=== PATIENT | male | born 1950 | race Caucasian/White ===

== ENCOUNTER 2018-08-06 11:15 | Emergency (ER) | payer MEDICARE, OTHER, SELFPAY ==
[2018-08-06] VITALS (38 sets, daily range): BP systolic 145–173; BP diastolic 61–82; PULSE 59–84; RESP 13–26; TEMP 36.5; O2SAT 94–97
[2018-08-06 11:42] LABS: Abs Immature Grans 0.01 k/cumm (0.0-0.09); Absolute Basophil Count 0.04 k/cumm (0.0-0.2); Absolute Eosinophil Count 0.25 k/cumm (0.0-0.7); Absolute Lymphocyte Count 1.53 k/cumm (1.2-3.4); Absolute Monocyte Count 0.52 k/cumm (0.11-0.7); Absolute Neutrophil Count 3.31 k/cumm (1.2-6.7); Basophils % 0.7; Eosinophils % 4.4; HGB 12.9 g/dL (13.5-17.5); Immature Grans % 0.2; Mean Corp. HGB Concentration 33.9 g/dL (32.0-36.0); Mean Corpuscular Hemoglobin 30.4 pg (27.0-33.0); Mean Corpuscular Volume 89.4 fL (80-95); Mean Platelet Volume 9.4 fL (8.0-11.0); Monocytes % 9.2; Neutrophils % 58.5; Platelet Count 250 x1000/uL (130-400); RBC 4.25 m/cumm (4.50-6.00); RBC Distribution Width 12.8 % (11.8-14.1); White Blood Cell Count 5.66 k/cumm (4.4-10.8)
[2018-08-06 12:01] LABS: ALT 19 U/L (12-78); AST 18 U/L (15-37); Albumin 3.3 g/dL (3.4-5.0); Alkaline Phosphatase 104 U/L (46-116); Anion Gap 4.7 mmol/L (3-11); BUN 27 mg/dL (7-18); Bilirubin, Total 0.4 mg/dL (0.2-1.0); CO2 33.3 mmol/L (21.0-32.0); CREATININE 1.02 mg/dL (0.70-1.30); Chloride 104 mmol/L (98-107); Glucose 106 mg/dL (70-100); Magnesium 1.9 mg/dL (1.8-2.4); NT-proBNP 229 pg/mL; Potassium 3.7 mmol/L (3.5-5.1); Sodium 142 mmol/L (136-145); Total Protein 6.9 g/dL (6.4-8.2)
[2018-08-06 12:05] LABS: Calcium 8.6 mg/dL (8.5-10.1)
--- NOTE | 2018-08-06 12:05 | ED.GENADUL_ITS ---
Discharge Plan Disposition Patient Disposition: HOME Discharge Details Chief Complaint: Dizzy/Sync Clinical Impression: Adrenal nodule, AAA (abdominal aortic aneurysm), Pre-syncope Primary Care Provider: Merrill Bales ED Provider: Jose Angel Vargas Home Meds and New Rx's Prescriptions: Continued atorvastatin 20 mg Tablet 20 mg PO DAILY RF: 0 sertraline 100 mg Tablet 100 mg PO DAILY RF: 0 trazodone 100 mg Tablet 100 mg PO DAILY RF: 0 lisinopril 10 mg Tablet 10 mg PO DAILY RF: 0 aspirin [Nicola Chewable Aspirin] 81 mg Tablet,Chewable 1 tab PO DAILY RF: 0 Discharge Instructions Instructions: Abdominal Aortic Aneurysm (GEN), Near Syncope (ED) Additional Instructions: You are found to have a left adrenal nodule on CT imaging. This will need further characterization and follow-up diagnostic testing. Be sure to discuss with your primary care physician as soon as possible. You were found to have an infrarenal abdominal aortic aneurysm measuring 3.7 x 4 x [address] imaging. Be sure to discuss this with your primary care physician and follow-up with vascular surgery as soon as possible. He will need additional diagnostic imaging and/or treatment. Please contact your primary care physician to arrange follow-up. Return to the ER for any worsening or new concerning symptoms. Referrals: Merrill Bales [Primary Care Provider] - Discharge Data Discharge Date/Time-TO BE ENTERED AT DEPARTURE: 08/06/18 15:38 Medical Decision Making 12:20 --68-year-old male, former smoker, history of hypertension, carotid stenosis, coronary artery disease listed in EMR, here with dizziness/presyncope that occurred today while having a bowel movement. Symptoms now resolved. Neurologically intact. Patient does have enlarged aorta on abdominal exam. Bedside [id number] ultrasound reveals AAA 3.8 cm diameter. Abdominal exam is nontender. Screening EKG was reviewed and interpreted by me: Sinus rhythm 60 bpm, normal axis, QTC 440, some artifact, nondiagnostic, no STEMI. Plan at this time is to check screening labs to assess for electrolyte abnormalities. Will obtain CTA of the abdomen to better dcharacterize AAA and rule out wall rupture. Patient does appear dehydrated. I will give him IV fluid bolus and reassess. Patient has had unintentional 20 pound weight loss over the past year and I worry given his smoking history that there could be malignancy not yet diagnosed. He apparently had a CT of his chest within the past year that was notable for emphysema but he does not believe there are any other abnormal findings. Weight loss may also be related to his depression. He is not suicidal and is being treated for depression. I have encouraged him to talk to his primary care physician about this. 15:00 --CT of the abdomen interpreted by radiology: IMPRESSION: 1. Infrarenal abdominal aortic aneurysm measures 3.7 x 4 x 6 cm (AP/TV/SI). 2. Atherosclerotic calcifications throughout the abdominal vasculature. No significant stenosis or occlusion. 3. Left adrenal nodule measures 1.2 x 0.8 cm, further characterization not possible on current examination. Chest x-ray interpreted by radiology: Negative. Results were reviewed with the patient. Patient understands importance of timely follow-up regarding aortic aneurysm. I will asked care management to assist in arranging outpatient follow-up with vascular surgery. Labs reviewed: Nondiagnostic, including initial troponin and second delta troponin III hours which are negative. Patient reassessed after crystalloid 500 mL bolus. He feels much better. He is remained hemodynamically stable here in the emergency department. No arrhythmias. Unclear etiology for symptoms earlier but may have been related to late administration of his medication and vagal episode during bowel movement. Disposition decision was made weighing the risks and benefits of hospitalization versus outpatient treatment, the risk for further decompensation, and the patient's wishes. The patient was stable and requested discharge. Prior to discharge, my usual and customary return precautions were reviewed with the patient - this included follow-up instructions and reason to return to the emergency department if condition worsens, does not improve as expected, or other new concerns arise. HPI General Mode of arrival: ambulatory . Date/Time Provider Initiated Documentation: 08/06/18 11:30 . Limitations to Documentation: no limitations . Information obtained by: patient . HPI Narrative: 68-year-old male with history of hypertension, hypercholesterolemia, coronary artery disease, carotid stenosis, presents with chief complaint of dizziness. Patient notes that he was feeling well this morning and then suddenly became dizzy while having a bowel move around 930. Dizziness described as presyncopal. Dizziness was worse when he stood up and improved when he lied down. Disease is now completely resolved. He had no associated headache. No numbness or focal weakness. No chest pain or abdominal pain. No shortness of breath. He has had no leg swelling or calf pain. Patient has had no bright red blood per rectum. No melena. Related Data Home Medications Medication Instructions Recorded Confirmed aspirin [Nicola Chewable Aspirin] 1 tab PO DAILY 08/06/18 08/06/18 atorvastatin 20 mg PO DAILY 08/06/18 08/06/18 lisinopril 10 mg PO DAILY 08/06/18 08/06/18 sertraline 100 mg PO DAILY 08/06/18 08/06/18 trazodone 100 mg PO DAILY 08/06/18 08/06/18 Allergies Allergy/AdvReac Type Severity Reaction Status Date / Time No Known Allergies Allergy Unverified 08/06/18 11:23 General Stated Complaint: Dizzy/Sync PARVIN: 2 Review of Systems Review of Systems All systems reviewed & are unremarkable except as noted in HPI and below Constitutional Reports fatigue, Denies fever(s) and Reports weight loss (20lbs unintentional over 1yr) Cardiovascular Denies chest pain and Denies dyspnea Respiratory Denies cough and Denies dyspnea Gastrointestinal Denies abdominal pain Psychiatric Reports depression and Denies suicidal ideation Endocrine Reports fatigue PFSH Medical History Carotid stenosis (Chronic) HTN (hypertension) (Chronic) Social History Smoking/Tobacco Use Status: Former Tobacco Use Drug use: Never Do you feel safe in your relationship?: Yes Exam Const General: cooperative and no acute distress Orientation: alert and awake HENMT Head: normocephalic and atraumatic Mouth: mucous membranes dry Throat: posterior oropharynx normal Eyes Conjunctivae: normal conjunctivae Sclera: normal sclerae EOM: EOM intact bilaterally Neck Neck: trachea midline and supple Resp Auscultation: clear to auscultation bilaterally, no rales, no rhonchi and no wheezes Cardio Jugular venous pressure: no JVD Rate: regular rate and not tachycardic Rhythm: regular rhythm GI Inspection: non-distended Palpation: soft, aortic enlargement, not firm, no guarding, no masses, not rigid and nontender Skin General skin exam: no rashes or lesions noted Neuro General: alert, awake, oriented x3 and tone normal Extrem General: no edema Psych Appearance: grossly normal Mental Status: mental status grossly normal and other (depressed) Mood: other (depressed) Attitude: cooperative Thought Process: normal Thought Content: normal Insight: insight good Judgment: judgment good Course Vital Signs Respiratory Rate 13 08/06/18 11:10 Pulse Oximetry 95 08/06/18 11:10 Temperature 36.5 C 08/06/18 11:21 Temperature Source Skin 08/06/18 11:21 Pulse 64 08/06/18 11:58 Pulse 62 08/06/18 11:40 Respiratory Rate 20 08/06/18 11:40 Respiratory Effort 08/06/18 11:40 Respiratory Depth Normal 08/06/18 11:37 Respiratory Pattern Normal 08/06/18 11:37 Blood Pressure 158/78 H 08/06/18 11:58 Blood Pressure Mean 96 08/06/18 11:31 Pulse Oximetry 96 08/06/18 11:40 Oxygen Delivery Method Room Air 08/06/18 11:21 Oxygen Flow Rate 0 08/06/18 11:21 Pain Level 0 08/06/18 11:21 Lab/Test Results Lab/Test Results: Laboratory Tests Range/Units 08/06/18 11:36 WBC (4.4-10.8) k/cumm 5.66 RBC (4.50-6.00) m/cumm 4.25 L Hgb (13.5-17.5) g/dL 12.9 L Hct (40.0-50.0) % 38.0 L MCV (80-95) fL 89.4 MCH (27.0-33.0) pg 30.4 MCHC (32.0-36.0) g/dL 33.9 RDW (11.8-14.1) % 12.8 Plt Count (130-400) x1000/uL 250 MPV (8.0-11.0) fL 9.4 Immature Gran % 0.2 Neutrophils % 58.5 Lymphocytes % 27.0 Monocytes % 9.2 Eosinophils % 4.4 Basophils % 0.7 Absolute Neutrophils (1.2-6.7) k/cumm 3.31 Absolute Lymphocytes (1.2-3.4) k/cumm 1.53 Absolute Monocytes (0.11-0.7) k/cumm 0.52 Absolute Eosinophils (0.0-0.7) k/cumm 0.25 Absolute Basophils (0.0-0.2) k/cumm 0.04
[2018-08-06 12:07] LABS: Troponin I < 0.02 ng/mL (0.00-0.06)
[2018-08-06 12:22] LABS: Bilirubin Negative (Negative); Blood Negative (Negative); Clarity Clear; Glucose Negative (Negative); Ketones Negative (Negative); Leukocyte Esterase Negative (Negative); Nitrite Negative (Negative)
[2018-08-06] MEDS: Omnipaque 350 MG/ML 100 ML BTL IJ (12:36)
[2018-08-06] MEDS: Normal Saline Flush 10 ML SYR IVP (12:37)
--- NOTE | 2018-08-06 12:39 | DI.COMBO_ITS ---
SYMPTOM/DIAGNOSIS: DIZZINESS, AAA ON POC ULTRASOUND FRONTAL AND LATERAL CHEST: No priors. Heart size and pulmonary vasculature are within normal limits. The lungs are clear. No effusions or pneumothoraces are identified. The lungs appear hyperinflated with flattened diaphragms suggesting underlying COPD. Degenerative changes are seen in the spine. IMPRESSION: No acute pulmonary process. CTA OF ABDOMEN AND PELVIS: CT angiography was performed with multi slice acquisition and multi planar and 3D reconstruction. CT angiography of the abdomen and pelvis was performed according to protocol. There is an infrarenal abdominal aortic aneurysm measuring 3.7 cm AP by 4 cm. transverse by 6.0 cm. craniocaudally. No evidence of stenosis or occlusion or dissection. The celiac axis and mesenteric arteries are unremarkable without evidence of occlusion or significant stenosis. The renal arteries show no evidence of occlusion or significant stenosis. Mild calcification is seen in the origin of the right renal artery. The iliac arteries show calcific changes. No aneurysm or occlusion or significant stenosis. The liver is normal in size. No suspicious hepatic mass is seen. The gallbladder is negative. No biliary ductal dilatation is seen. The portal, superior mesenteric and splenic veins are patent. The pancreas and spleen appear unremarkable. There is a 1.2 by 0.8 cm. hypodense left adrenal nodule. The right adrenal gland is unremarkable. The kidneys normal and symmetric enhancement. No suspicious solid renal mass or obstruction is identified. The urinary bladder is intact. The reproductive organs are unremarkable. No significant abdominal or pelvic adenopathy, ascites or pneumoperitoneum is present. The bowel shows no evidence of obstruction or inflammation. No acute abnormality is seen of the bones. IMPRESSION: 1. 3.7 by 4 by 6 cm. infrarenal abdominal aortic aneurysm. 2. Atherosclerosis of the abdominal aorta and its runoff. No significant stenosis or occlusion is identified. 3. Nonspecific left adrenal nodule. Follow up as clinically appropriate.
--- NOTE | 2018-08-06 13:11 | DI.VRAD_ITS ---
EXAM: CT Angiography Abdomen and Pelvis With Contrast EXAM DATE/TIME: 08/06/2018 11:59 AM CLINICAL HISTORY: 68 years old, male; Signs and symptoms; Other: Aaa on poc ultrasound, nonttp, dizzy TECHNIQUE: Axial computed tomographic angiography images of the abdomen and pelvis with intravenous contrast material, including non-contrast images if performed. All CT scans at this facility use at least one of these dose optimization techniques: automated exposure control; mA and/or kV adjustment per patient size (includes targeted exams where dose is matched to clinical indication); or iterative reconstruction. MIP reconstructed images were created and reviewed. CONTRAST: Contrast Material: 100 ml of Omnipaque 350; Contrast Route: IV COMPARISON: No relevant prior studies available. FINDINGS: VASCULATURE: Aorta: Infrarenal abdominal aortic aneurysm measures 3.7 x 4 x 6 cm (AP/TV/SI). Atherosclerotic calcifications throughout the abdominal vasculature. No significant stenosis or occlusion. Celiac trunk and mesenteric arteries: No occlusion or significant stenosis. Renal arteries: No occlusion or significant stenosis. Right iliac arteries: No occlusion or significant stenosis. Left iliac arteries: No occlusion or significant stenosis. ABDOMEN: Liver: No mass. Gallbladder and bile ducts: Unremarkable. No calcified stones. No ductal dilation. Pancreas: Unremarkable. No mass. No ductal dilation. Spleen: Unremarkable. No splenomegaly. Adrenals: Left adrenal nodule measures 1.2 x 0.8 cm, further characterization not possible on current examination. Right adrenal unremarkable. Kidneys and ureters: Unremarkable. No solid mass. No hydronephrosis. Stomach and bowel: Unremarkable. No obstruction. No mucosal thickening. Appendix: No evidence of appendicitis. PELVIS: Bladder: Unremarkable. No mass. Reproductive: Unremarkable as visualized. ABDOMEN and PELVIS: Intraperitoneal space: Unremarkable. No free air. No significant fluid collection. Bones/joints: No acute fracture. No dislocation. Soft tissues: Unremarkable. Lymph nodes: Unremarkable. No enlarged lymph nodes. IMPRESSION: 1. Infrarenal abdominal aortic aneurysm measures 3.7 x 4 x 6 cm (AP/TV/SI). 2. Atherosclerotic calcifications throughout the abdominal vasculature. No significant stenosis or occlusion. 3. Left adrenal nodule measures 1.2 x 0.8 cm, further characterization not possible on current examination. Dictated and Authenticated by: Liss Muniz MD. Ordering:HARPREET Walter MD
--- NOTE | 2018-08-06 13:11 | DI.VRAD_ITS ---
EXAM: XR Chest, 2 Views EXAM DATE/TIME: 08/06/2018 12:47 PM CLINICAL HISTORY: 68 years old, male; Signs and symptoms; Other: Dizzy TECHNIQUE: XR of the chest, 2 views. COMPARISON: No relevant prior studies available. FINDINGS: Lungs: Unremarkable. No consolidation. Pleural space: Unremarkable. No pleural effusion. No pneumothorax. Heart/Mediastinum: Unremarkable. No cardiomegaly. Bones/joints: Unremarkable. IMPRESSION: No acute findings. Dictated and Authenticated by: Liss Muniz MD. Ordering:HARPREET Walter MD
[2018-08-06] MEDS: Lactated Ringers 500 ML IV (13:15)
--- NOTE | 2018-08-06 14:04 | NUR.NOTE ---
patient has been resting comfortably, denies complaints, patient is aware of waiting for diagnostic results Nursing Note:
[2018-08-06 14:53] LABS: Troponin I < 0.02 ng/mL (0.00-0.06)
--- NOTE | 2018-08-26 09:26 | ZIOP_ITS ---
DATE OF DICTATION: August 26, 2018 INDICATION: Dizziness. ANALYSIS TIME: 12 days and 22 hours. Predominant underlying rhythm is sinus rhythm. When in sinus rhythm, average heart rate 70 bpm, mini mum heart rate 54 bpm and maximum heart rate 125 bpm. 27 short bursts of SVT. Run with the fastest interval lasting 7 beats with a maximum heart rate of 1 69 bpm. Longest SVT burst lasting 14 beats. Otherwise rare, isolated atrial ectopy. Rare, isolated ventricular ectopy. No nonsustained VT. No significant pauses or bradyarrhythmias. No patient-triggered events or diary entries.
== END 2018-08-06 15:38 | disposition home or self-care (01) ==
PROVIDERS: Emergency Provider Student in an Organized Health Care Education/Training Program; PCP Internal Medicine
DX: R42 Dizziness and giddiness (principal); R93.422 Abnormal radiologic findings on diagnostic imaging of left kidney; I71.4 Abdominal aortic aneurysm, without rupture; R63.4 Abnormal weight loss; I10 Essential (primary) hypertension; I25.10 Atherosclerotic heart disease of native coronary artery without angina pectoris; Z87.891 Personal history of nicotine dependence
CPT/HCPCS: 36415; 80053; 93005; 93225; 96360; 99285; 71046; 74174; 81003; 83735; 83880; 84484; 85025; 93010; J3490

== ENCOUNTER 2022-09-16 12:57 | Emergency (ER) | payer OTHER, MEDICARE, SELFPAY ==
--- NOTE | 2022-09-16 13:00 | DI.CT_ITS ---
Exam(s) CT HEAD WO EXAM: CT HEAD WO CLINICAL HISTORY: fall, head and facial injury. TECHNIQUE: Imaging Protocol: Axial computed tomography images with coronal and sagittal reformatted images were created and reviewed COMPARISON: No exams were available for comparison FINDINGS: Ventricles and Extra axial spaces: Normal in size and morphology for the patient's age. Hemorrhage: None. Cerebral parenchyma: There is no evidence of an acute territorial infarct. 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 There are areas of decreased attenuation in the white matter most consistent with sm all vessel ischemic disease. Midline shift: None. Brainstem/Cerebellum: Normal. Calvarium: There are fractures involving the anterior lateral and medial julio of the right maxillary sinus. There is a nondisplaced fracture involving the right zygomatic arch. There is a mildly disp laced fracture involving the lateral wall of the right orbit. There is a right orbital floor fractur e. There is air and hemorrhage seen in the floor and lateral aspect of the right orbit. There is ri ght infraorbital soft tissue swelling. The globe is intact. The extraocular muscles appear symmetri c and unremarkable. Visualized Paranasal sinuses/Mastoids: There is hemorrhage seen in the right maxillary sinus, the rig ht ethmoid air cells and the right nasal passageway. There is also hemorrhage seen in the posterior oropharynx and nasopharynx. Soft Tissues: Unremarkable. IMPRESSION: 1. No acute intracranial process. 2. Fractures involving the right orbital floor and lateral wall. No evidence of muscle entrapment. Fluid and air is seen in the right retro-orbital space. 3. Fractures involving the right zygomatic arch, anterior, posterior and medial julio of the right ma xillary sinus. 4. Hemorrhage seen in the right maxillary sinus, the nasopharynx and oropharynx. 5. Findings were discussed with Dr. Yarbrough at 2:44 p.m. on 09/16/2022. RADIATION DOSE DELIVERED: 859.18mGy.cm Total DLP DATA REPOSITORY: All CT scans at this facility are submitted to the National Radiology Data Registry (NRDR) Dose Index Registry (DIR) with the [employer] (A[employer]). RADIATION OPTIMIZATION: All CT scans at this facility use at least one of these dose optimization te chniques: automated exposure control; mA and/or kV adjustment per patient size (includes targeted exa ms where dose is matched to clinical indication); or iterative reconstruction.
[2022-09-16 13:03] VITALS: BP 156/78; PULSE 79; RESP 16; TEMP 36.6; O2SAT 95
--- NOTE | 2022-09-16 13:14 | ED.GENADUL_ITS ---
Discharge Plan Disposition Patient Disposition: Home Condition: Stable Discharge Details Clinical Impression: Orbital floor fracture, Maxillary fracture, Zygomatic fracture Primary Care Provider: Merrill Bales ED Provider: Karsten Yarbrough Home Meds and New Rx's Prescriptions: New amoxicillin-pot clavulanate 875-125 mg tablet 1 tab PO BID 5 Days Qty: 10 0RF No Action atorvastatin 20 mg Tablet 20 mg PO DAILY sertraline 100 mg Tablet 100 mg PO DAILY trazodone 100 mg Tablet 100 mg PO DAILY lisinopril 10 mg Tablet 10 mg PO DAILY aspirin [Nicola Chewable Aspirin] 81 mg Tablet,Chewable 1 tab PO DAILY Discharge Instructions Instructions: Facial Fracture (ED) Additional Instructions: Please follow-up closely with ENT and ophthalmology at [facility]. If you have any issues obtaining an appointment or have any worsening symptoms please return to the emergency department. Medical Decision Making 72-year-old male with daily estrogen use presents after mechanical slip and fall while walking in the [place] falling onto his face, no loss of consciousness, epistaxis developing bilateral naris predominantly now in the right naris, no malocclusion no intraoral lesions, patient is alert oriented ambulatory moving all extremities hemodynamically stable. Nasal clamp applied, will attempt to provide hemostasis with the injured days Afrin and tranexamic acid. Given age and mechanism will obtain CT head to assess for intracranial process. Likely nasal fracture. 15: 19 patient resting comfortably nose hemostatic. Evidence of orbital floor flexure maxillary sinus fracture and zygomatic fracture. No evidence of enophthalmos or proptosis, patient has normal extraocular motion and no visual changes. Patient follows at the [facility] [place] I have called the and spoke with the scheduling department for [facility] they will be reaching out to schedule him within the next couple of days for close follow-up. I am starting patient on Augmentin HPI General Date/Time Provider Initiated Documentation: 09/16/22 13:10 . HPI Narrative: 72-year-old male presents today after mechanical fall while walking in the [place] fell forward hitting his face on a long COVID no loss of consciousness. Bleeding from nostrils. Related Data Home Medications Medication Instructions Recorded Confirmed aspirin 81 mg chewable tablet 1 tab PO DAILY 08/06/18 09/16/22 (Nicola Chewable Low Dose Aspirin) atorvastatin 20 mg tablet 20 mg PO DAILY 08/06/18 09/16/22 lisinopril 10 mg tablet 10 mg PO DAILY 08/06/18 09/16/22 sertraline 100 mg tablet 100 mg PO DAILY 08/06/18 09/16/22 trazodone 100 mg tablet 100 mg PO DAILY 08/06/18 09/16/22 amoxicillin 875 mg-potassium 1 tab PO BID 5 days #10 tabs 09/16/22 clavulanate 125 mg tablet Previous Rx's Medication Instructions Recorded amoxicillin 875 mg-potassium 1 tab PO BID 5 days #10 tabs 09/16/22 clavulanate 125 mg tablet Allergies Allergy/AdvReac Type Severity Reaction Status Date / Time No Known Allergies Allergy Unverified 08/06/18 11:23 General Stated Complaint: Epistaxis PARVIN: 3 Review of Systems Narrative: Review of Systems Constitutional: negative Eyes: negative ENT: Epistaxis Cardiovascular: negative Respiratory: negative Gastrointestinal: negative : negative Musculoskeletal: negative Skin: negative Neurologic: negative Psych: negative PFSH All Active Problems (Updated 09/16/22 @ 15:21 by Karsten Yarbrough MD) Orbital floor fracture (Acute) Maxillary fracture (Acute) Zygomatic fracture (Acute) Medical History (Updated 09/16/22 @ 15:21 by Karsten Yarbrough MD) Carotid stenosis HTN (hypertension) Social History Smoking/Tobacco Use Status: Former Tobacco Use Quit Date: 01/29/18 Smoking risk assessment performed?: Yes Drug use: Never Do you feel safe in your relationship?: Yes Exam Narrative Exam Narrative: Physical Examination General: alert, awake, cooperative, resting comfortably, no acute distress HEENT: normocephalic, epistaxis at this point right naris, no noticeable facial lacerations or intraoral lesions, no malocclusion; PERRL, EOM intact, conjunctiva normal; no nasal discharge; moist mucous membranes, oral and pharyngeal mucosa normal, tolerating secretions Neck: supple, trachea midline; full ROM Chest: normal to inspection Respiratory: normal respiratory effort, speaking in full sentences, clear to auscultation, no wheezing, rales or rhonchi Cardiac: regular rate, regular rhythm, S1S2 intact, no murmurs rubs or gallops GI: abdomen soft, non-tender, non-distended; no palpable mass or hepatosplenomegaly Neuro: AAOx3, normal speech, moving all extremities, ambulatory Extremities: Moving all extremities Psych: Appropriate mood and affect Course Vital Signs Vital signs: Vital Signs Temperature 36.6 C 09/16/22 13:03 Pulse 79 09/16/22 13:03 Respiratory Rate 16 09/16/22 13:03 Blood Pressure 156/78 H 09/16/22 13:03 Pulse Oximetry 95 09/16/22 13:03 Temperature 36.6 C 09/16/22 13:03 Pulse 79 09/16/22 13:03 Respiratory Rate 16 09/16/22 13:03 Blood Pressure 156/78 H 09/16/22 13:03 Pulse Oximetry 95 09/16/22 13:03 Oxygen Delivery Method Room Air 09/16/22 13:03 Oxygen Flow Rate 0 09/16/22 13:03 Pain Level 5 09/16/22 13:03
[2022-09-16] MEDS: Oxymetazolone 0.05% SPRAY 15 ML BTL NS (13:17)
[2022-09-16] MEDS: Tranexamic Acid 1,000 MG/10 ML VIAL 500 MG NS (13:18)
[2022-09-16] MEDS: Ondansetron O.D.T. 4 MG TABEF SL (13:43)
[2022-09-16] MEDS: Amoxicillin 875/Clav. 125 TAB PO (15:40)
== END 2022-09-16 15:45 | disposition home or self-care (01) ==
PROVIDERS: Emergency Provider Emergency Medicine; PCP Internal Medicine
DX: S02.31XA Fracture of orbital floor, right side, initial encounter for closed fracture (principal); S02.40CA Maxillary fracture, right side, initial encounter for closed fracture; S02.40EA Zygomatic fracture, right side, initial encounter for closed fracture; I10 Essential (primary) hypertension; Z79.82 Long term (current) use of aspirin; W01.198A Fall on same level from slipping, tripping and stumbling with subsequent striking against other object, initial encounter; Y93.01 Activity, walking, marching and hiking; Y99.8 Other external cause status
CPT/HCPCS: 99284; 70450

== ENCOUNTER 2023-04-25 09:03 | Observation (INO) | payer OTHER, SELFPAY ==
[2023-04-25] VITALS (38 sets, daily range): BP systolic 100–134; BP diastolic 41–73; PULSE 72–98; RESP 9–41; TEMP 36.2–37.8; O2SAT 84–95
--- NOTE | 2023-04-25 09:00 | RT.EKG_ITS ---
APPROVED REPORT Exam: Resting ECG Reason for Exam: SOB Patient Location: E HR:93 bpm ECG Measurements Heart Rate 93 AXIS AR 129 P 54 QRSd 96 QRS 86 QT 365 T 128 QTc 453 Conclusion Sinus rhythm...normal P axis, V-rate 60- 99 Atrial premature complex...SV complex w/ short R-R interval Nonspecific repol abnormality, diffuse leads...ST dep, T flat/neg, ant/lat/inf Narrow complex normal sinus rhythm at a rate of 93. Normal axis. Intervals within normal limits. M ild ST segment flattening inferiorly. No ST segment elevations. T wave inversion in aVL. No acute injury pattern. No prior for comparison.
--- NOTE | 2023-04-25 09:15 | DI.RAD_ITS ---
Exam(s) XR CHEST 2V PA LATERAL EXAM: XR CHEST 2V PA LATERAL CLINICAL HISTORY: Shortness of breath fever cough TECHNIQUE: 2D digital imaging was performed of the chest. Two images were obtained. PA and lateral views were obtained. COMPARISON: CR XR CHEST 2V PA LATERAL from 08/06/2018 FINDINGS: MEDIASTINUM: Normal. HEART: Normal. PULMONARY VASCULATURE: Normal. LUNGS: The lungs appear hyperinflated with flattened diaphragms suggesting underlying COPD. No focal consolidating infiltrate. PLEURAL SPACE: No pleural effusion or pneumothorax. BONE:Within normal limits for the patient's age. OTHER FINDINGS:Normal. IMPRESSION: 1. No focal consolidations. 2. COPD. DATA REPOSITORY: RADIATION DOSE DELIVERED:
--- NOTE | 2023-04-25 09:18 | W.ED.GENAD ---
Discharge Plan Disposition Patient Disposition: [facility] Discharge Details Clinical Impression: BERNARDA (acute kidney injury), Community acquired pneumonia Primary Care Provider: Merrill Bales ED Provider: Manny Wallace Home Meds and New Rx's Prescriptions: No Action atorvastatin 20 mg Tablet 20 mg PO DAILY sertraline 100 mg Tablet 100 mg PO DAILY trazodone 100 mg Tablet 100 mg PO DAILY lisinopril 10 mg Tablet 10 mg PO DAILY aspirin [Nicola Chewable Aspirin] 81 mg Tablet,Chewable 1 tab PO DAILY HPI General Date/Time Provider Initiated Documentation: 04/25/23 09:17. HPI Narrative: MDM This is a chronically ill-appearing afebrile and not tachycardic 72-year-old male with productive cough shortness of breath abnormal lung sounds concerning for the possibility of community-acquired pneumonia for which patient will receive oral antibiotics given that he is tolerating p.o. Patient was hypoxic after ambulating in the emergency department and as result feel he will require hospitalization. His heart rate is just above 90 however he is not septic appearing so I did not order blood cultures nor a lactate. We will reach out to the [place] for hospitalization request. Following ambulatory trial in the emergency department patient desaturated into the mid 80s. When I saw him he was on 1 L of oxygen. In the absence of trauma and given bilateral breath sounds my suspicion for pneumothorax is low. I turned off his oxygen and addressed his oxygen saturation was 89% on room air. He did become markedly dyspneic after sitting up. No chest pain to suggest ACS. No hypotension to suggest PE. No nausea nor vomiting no history of ethanol abuse to suggest anaerobic infection as result of aspiration. No pain or proportion to suggest necrotizing soft tissue infection. No history of CHF and no lower extremity swelling so my suspicion for acute CHF is low. No significant wheezes nor active tobacco use nor history of COPD to suggest acute COPD exacerbation. Not a diabetic so doubt opportunistic infection. No significant murmur to suggest valvular pathology. 10 AM The CBC showing no leukocytosis. Mild normocytic anemia similar to prior. No leukocytosis. Patient maintaining oxygen saturation 89% on room air. 10:13 AM [facility] the patient would have to [facility] if he wanted to be transferred. Patient would not be willing to pay for transfer. As result will pursue local hospitalization. 10:35 AM Panel showing mild hyperglycemia but no anion gap. Normal bicarbonate??not consistent with DKA. Mild BERNARDA. Patient received 500 cc of crystalloid. Preliminary virtual radiology read concerning for hyper expanded lung steen consistent with COPD. No focal consolidations. Given concern for COPD on x-ray we will add on prednisone. 10:54 AM I spoke with Dr. Renteria who agreed graciously to accept the patient for hospitalization. He requested adding on procalcitonin and a sputum culture. Chronic conditions affecting the care of the patient: Coronary artery disease History obtained from an outside historian: Patient's External record review: [facility] EMR Diagnostic interpretations performed by me: Per my independent interpretation chest x-ray shows: Increased left-sided lung markings Per my independent interpretation EKG shows: Narrow complex normal sinus rhythm at a rate of 93. Normal axis. Intervals within normal limits. Mild ST segment flattening inferiorly. No ST segment elevations. T wave inversion in aVL. No acute injury pattern. No prior for comparison. Medications: Amoxicillin clavulanic acid & doxycycline Social determinants of health affecting disposition: N/A Management discussed with: Dr. Renteria Treatment/interventions considered: N/A Response to therapies provided: N/A HPI This is a 72-year-old male arrived to the emergency department via private vehicle in the setting of shortness of breath and productive cough for the past 1 week. Patient said that he had a fever up until 3 days ago but this improved. He is a former tobacco user and quit 6 years ago. He has not a drinker and he denies illicit drug use. He denies any history of CHF. His reports that he does have coronary arterial calcifications that has never been stented. He has no history of diabetes. He denies chest pain nausea vomiting and abdominal pain. No recent falls. Exam General: Well-appearing in no acute distress speaking in complete sentences. Head: Normocephalic, atraumatic. Eye: Extraocular eye movements intact. No conjunctival injection. No scleral icterus. Ear, nose, mouth, throat: Grossly normal inspection. Normal voice, handling secretions normally. Neck: Trachea midline. Cardiovascular: Well-perfused distal extremities. Regular rate and rhythm. No murmurs. Respiratory: Nonlabored respiration. Coarse left-sided breath sounds. No wheezes. Mild tachypnea with respiratory rate of 30. Gastrointestinal: Nondistended abdomen. Musculoskeletal: No significant lower extremity pitting edema. Moving all 4 extremities spontaneously. Skin: Normal for age and race, grossly normal temperature and turgor. No acute rash. Neurologic: Alert and appropriate, no apparent acute deficits. Psychiatric: Mood and manner are appropriate. Grooming and personal hygiene are appropriate. Related Data Home Medications Medication Instructions Recorded Confirmed aspirin 81 mg chewable tablet 1 tab PO DAILY 08/06/18 04/25/23 (Nicola Chewable Low Dose Aspirin) atorvastatin 20 mg tablet 20 mg PO DAILY 08/06/18 04/25/23 lisinopril 10 mg tablet 10 mg PO DAILY 08/06/18 04/25/23 sertraline 100 mg tablet 100 mg PO DAILY 08/06/18 04/25/23 trazodone 100 mg tablet 100 mg PO DAILY 08/06/18 04/25/23 Allergies Allergy/AdvReac Type Severity Reaction Status Date / Time No Known Allergies Allergy Unverified 04/25/23 09:21 General Stated Complaint: SOB PARVIN: 2 PFSH All Active Problems (Updated 04/25/23 @ 10:38 by Manny Wallace MD) Community acquired pneumonia (Acute) BERNARDA (acute kidney injury) (Acute) Medical History (Updated 04/25/23 @ 10:38 by Manny Wallace MD) HTN (hypertension) Carotid stenosis Social History Smoking/Tobacco Use Status: Former Tobacco Use Quit Date: 01/29/18 Smoking risk assessment performed?: Yes Alcohol Intake: former Drug use: Never Do you feel safe at home: Yes Do you feel safe in your relationship?: Yes Course Vital Signs Vital signs: Vital Signs Pulse 94 H 04/25/23 09:06 Respiratory Rate 36 H 04/25/23 09:06 Blood Pressure 134/59 L 04/25/23 09:06 Pulse Oximetry 85 L 04/25/23 09:06 Temperature Source Skin 04/25/23 09:06 Pulse 91 H 04/25/23 09:16 Pulse 95 H 04/25/23 09:16 Respiratory Rate 36 H 04/25/23 09:16 Respiratory Effort Short of Breath, Accessory Muscle Use, Incrsd Work of Breathing 04/25/23 09:13 Respiratory Pattern Tachypnea 04/25/23 09:13 Blood Pressure 115/45 L 04/25/23 09:16 Blood Pressure Mean 68 04/25/23 09:16 Pulse Oximetry 95 04/25/23 09:16 Oxygen Delivery Method Room Air 04/25/23 09:06 Oxygen Flow Rate 0 04/25/23 09:06 Pain Level 0 04/25/23 09:06
[2023-04-25 09:40] LABS: Abs Immature Grans 0.04 10^3/uL (0.0-0.06); Absolute Eosinophil Count 0.05 10^3/uL (0.0-0.7); Absolute Lymphocyte Count 0.67 10^3/uL (1.2-3.4); Absolute Monocyte Count 1.53 10^3/uL (0.1-0.8); Absolute Neutrophil Count 8.99 10^3/uL (1.2-6.7); Basophils % 0.4; Eosinophils % 0.4; HGB 12.4 g/dL (13.5-17.5); Immature Grans % 0.4; Lymphocytes % 5.9; MCHC 32.6 % (32.0-36.0); MCV 89 fL (80-95); MPV 8.9 fL (8.0-11.0); Monocytes % 13.5; Neutrophils % 79.4; Platelet Count 223 10^3/uL (130-400); RBC 4.27 10^6/uL (4.36-5.78); RDW 12.6 % (11.8-14.1); RDW-SD 40.8 fL; WBC 11.32 10^3/uL (4.4-10.8)
[2023-04-25] MEDS: Amoxicillin 875/Clav. 125 TAB PO (09:43)
[2023-04-25] MEDS: Doxycycline Hyclate 100 MG CAP PO (09:43)
[2023-04-25 09:45] LABS: Absolute Basophil Count 0.05 10^3/uL (0.0-0.2)
[2023-04-25 09:51] LABS: Anion Gap 3.6 mmol/L (3-11); BUN 23 mg/dL (7-18); CO2 30.4 mmol/L (21.0-32.0); CREATININE 1.3 mg/dL (0.70-1.30); Calcium 8.6 mg/dL (8.5-10.1); Chloride 102 mmol/L (98-107); Estimated GFR 58.01 (mL/min/1.73m2); Glucose 157 mg/dL (74-106); Potassium 3.9 mmol/L (3.5-5.1); Sodium 136 mmol/L (136-145)
[2023-04-25 09:56] LABS: Diff Comment Agrees w/ Instrument; RBC Morphology Normal
--- NOTE | 2023-04-25 10:34 | DI.VRAD_ITS ---
PROCEDURE INFORMATION: Exam: XR Chest Exam date and time: 04/25/2023 10:18 AM Age: 72 years old Clinical indication: Cough and fever and shortness of breath TECHNIQUE: Imaging protocol: Radiologic exam of the chest. Views: 2 views. COMPARISON: CR XR CHEST 2V PA LATERAL 08/06/2018 12:16 PM FINDINGS: Lungs: Hyperexpanded lung steen consistent with COPD . No focal consolidation. Pleural spaces: Unremarkable. No pleural effusion. No pneumothorax. Heart/Mediastinum: Unremarkable. No cardiomegaly. Bones/joints: Unremarkable. IMPRESSION: Hyperexpanded lung steen consistent with COPD . No focal consolidation Dictated and Authenticated by: Ventura Serna MD. Ordering:TACHO Bryant MD
[2023-04-25] MEDS: Normal Saline 500 ML IV (10:51)
[2023-04-25] MEDS: predniSONE 20 MG TAB 60 MG PO (10:52)
[2023-04-25 11:46] LABS: COVID-19 PCR Negative (Negative); Influenza A PCR Negative (Negative); Influenza B PCR Negative (Negative); RSV PCR Negative (Negative)
[2023-04-25 11:55] LABS: Source Nasopharynx
[2023-04-25 11:58] LABS: Procalcitonin 0.1 ng/mL
--- NOTE | 2023-04-25 12:52 | W.PM.HP.N ---
Date of service: 04/25/23 Time of Service: 12:52 Assessment and Plan Assessment and plan (1) COPD exacerbation: Status: Acute Assessment and plan: clinically stable, probably could have been dc home earlier from the ED but apparently still had oxygen needs. I will check exercise oximetry tomorrow but I expect him to go home on oral antibiotics and steroid taper. Professional time spent interviewing and examining patient, discussion of goals of care with hospital team (care management, nursing and consulting professionals) was 45 minutes History of Present Illness History of Present Illness Chief Complaint: Dyspnea Narrative: 72-year-old male with history of COPD, essential pretension, hyperlipidemia, previous CVA, left internal carotid artery stenosis who presents to the emergency department with increasing dyspnea and cough along with intermittent fevers and chills. Symptoms began 5 days ago initially with URI symptoms of nasal congestion and postnasal drainage and then went into a moist cough and progressed over the course of the week with some low-grade fever and chills. Did not take his temperature just felt feverish. He says the fever broke 2 days ago but came into the emergency department today because of the unrelenting cough and shortness of breath. He says he has had progressive increase of his dyspnea with activity for the last year. He formerly used to be able to go deer hunting and climb the hills but now he gets too breathless to even do routine work around the home. Denies any exertional chest pain or pressure. Work-up in the emergency department included a chest x-ray and routine labs including CBC BMP and fluid nasal swab. FLUVID was negative for SARS-CoV-2 as well as influenza and RSV. CBC showed a mild leukocytosis with a white count of 11,300 with a leftward shift. He has a stable chronic anemia with hemoglobin of 12 g. No thrombocytosis BMP showed a mildly elevated BUN of 23 creatinine was slightly elevated 1.3. Glucose was elevated at 157. Chest imaging included chest 2 Views which showed no focal consolidations but showed COPD. ER physician asked that I admit the patient as he was unable to discharge the patient from the emergency department due to exertional dyspnea and hypoxemia. Reportedly every time they try to get him up and ambulate him his oxygen saturation dropped to 85%. He was treated the emergency department with Augmentin and doxycycline and 60 mg of prednisone he was also given a fluid bolus of 500 mL of normal saline. I was told that he was given a nebulizer but I see no evidence that any aerosolized bronchodilator was given in the emergency department. After arrival to the floor he appeared to be quite calm and comfortable and was not short of breath. Over the course of the day he has been weaned off of oxygen. He came up to the floor on 1 L/min nasal cannula and is now currently on room air with an oxygen saturation of 92%. Review of Systems All systems reviewed & are unremarkable except as noted in HPI and below Constitutional Constitutional: Reports as per HPI Cardiovascular Cardiovascular: Reports as per HPI, Denies chest pain, Denies leg edema, Denies palpitations, Reports dyspnea and Reports dyspnea on exertion Respiratory Respiratory: Reports as per HPI, Reports chest congestion, Reports cough, Denies hemoptysis, Reports excessive phlegm production, Reports dyspnea and Reports dyspnea on exertion Gastrointestinal Gastrointestinal: Reports as per HPI Genitourinary Genitourinary: Reports system reviewed and no additional complaints, except as documented Musculoskeletal Musculoskeletal: Reports system reviewed and no additional complaints, except as documented Integumentary/Breasts Skin/Breast: Reports system reviewed and no additional complaints, except as documented Neurologic Neurologic: Reports system reviewed and no additional complaints, except as documented Endocrine Endocrine: Reports system reviewed and no additional complaints, except as documented and Denies palpitations Hematologic/Lymphatic Hematologic/Lymphatic: Reports system reviewed and no additional complaints, except as documented Allergic/Immunologic Allergic/Immunologic: Reports system reviewed and no additional complaints, except as documented PFSH All Active Problems (Updated 04/25/23 @ 18:32 by Douglas Celis MD) COPD exacerbation (Acute) Abdominal aortic aneurysm (Acute) Community acquired pneumonia (Acute) BERNARDA (acute kidney injury) (Acute) Medical History (Updated 04/25/23 @ 18:32 by Douglas Celis MD) Deafness Compensated by hearing aids Transient ischemic attack Coronary artery disease HTN (hypertension) Carotid stenosis Surgical History (Updated 04/25/23 @ 17:48 by Douglas Celis MD) Pilonidal cyst Social History (Updated 04/25/23 @ 17:47 by Douglas Celis MD) Smoking/Tobacco Use Status: Former Tobacco Use Quit Date: 01/29/18 Tobacco: How many years used: 53 Smoking risk assessment performed?: Yes Alcohol Intake: former Drug use: Never Housing: house Do you feel safe at home: Yes Do you feel safe in your relationship?: Yes Meds Allergies and Home Medications Allergies Allergy/AdvReac Type Severity Reaction Status Date / Time No Known Allergies Allergy Unverified 04/25/23 09:21 Home Medications Medication Instructions Recorded Confirmed Type aspirin 81 mg chewable tablet 1 tab PO DAILY 08/06/18 04/25/23 History (Nicola Chewable Low Dose Aspirin) atorvastatin 20 mg tablet 20 mg PO DAILY 08/06/18 04/25/23 History lisinopril 10 mg tablet 10 mg PO DAILY 08/06/18 04/25/23 History sertraline 100 mg tablet 100 mg PO DAILY 08/06/18 04/25/23 History trazodone 100 mg tablet 100 mg PO DAILY 08/06/18 04/25/23 History Exam Narrative Exam Narrative: Alert and oriented x4 HEENT: Atraumatic normocephalic, pupils equally round reactive to light and accommodation, extraocular motion intact, TMs intact, nares moist and patent without exudate or bleeding, oropharynx noninjected without exudate Neck: Supple, nontender, without thyromegaly or lymphadenopathy or JVD. Bilateral carotid bruits with normal impulse Lungs: barrel chested, diffusely diminished breath sounds w/ end expiratory wheezing Heart: Regular rate and rhythm without murmur rub or gallop. Normal apical impulse Abdomen: Nondistended, normal bowel sounds, nontender to palpation or percussion, no organomegaly, no bruits, no palpable masses Extremities: Normal range of motion with normal strength. No peripheral cyanosis or edema. Normal pulses Neurologic: Cranial nerves II through XII grossly within normal limits. Normal strength and sensation over the face trunk and extremities. Results Imaging Chest x-ray: report reviewed and image reviewed Labs 04/25/23 09:30 04/25/23 09:30 Labs: Laboratory Results - last 24 hr 04/25/23 04/25/23 09:30 10:40 WBC 11.32 H RBC 4.27 L Hgb 12.4 L Hct 38.0 L MCV 89 MCH 29.0 MCHC 32.6 RDW 12.6 Plt Count 223 MPV 8.9 Immature Gran % 0.4 Neutrophils % 79.4 Lymphocytes % 5.9 Monocytes % 13.5 Eosinophils % 0.4 Basophils % 0.4 Nucleated RBC % 0.0 Absolute Neutrophils 8.99 H Absolute Lymphocytes 0.67 L Absolute Monocytes 1.53 H Absolute Eosinophils 0.05 Absolute Basophils 0.05 RBC Morphology Normal Sodium 136 Potassium 3.9 Chloride 102 Carbon Dioxide 30.4 Anion Gap 3.6 BUN 23 H Creatinine 1.3 Est GFR (CKD-EPI 2020) 58.01 Glucose 157 H Calcium 8.6 Procalcitonin 0.1 COVID-19 Source Nasopharynx SARS-CoV-2 (PCR) Negative Influenza Type A (PCR) Negative Influenza Type B (PCR) Negative RSV (PCR) Negative Last Vital Signs Temp 36.2 C L 04/25/23 10:57 Pulse 95 H 04/25/23 12:20 Resp 22 04/25/23 12:20 BP 112/47 L 04/25/23 12:20 Pulse Ox 88 L 04/25/23 12:20 Time Spent Time spent with Patient: 40-54 minutes Time was spent: preparing to see the patient(eg.review tests), obtaining and/or reviewing separately otained hiistory, ordering medications,tests, procedures, referring, communicating with other health director of managed care (Dr. Wallace), indepentently interpreting results, counseling the patient and care coordination
[2023-04-25] MEDS: Enoxaparin 40 MG/0.4 ML SYR SC (14:41)
[2023-04-25] MEDS: AMPICILLIN/SULBACTAM 3 GM in Normal Saline 100 ML IVPB ×2 (14:41→21:22)
[2023-04-25] MEDS: Normal Saline Flush 10 ML SYR IVP (14:41)
[2023-04-25] MEDS: DOXYCYCLINE 100 MG in Normal Saline 100 ML IVPB (15:45)
[2023-04-25] MEDS: Albuterol/Ipratropium 3 ML UPD VIAL UPD (16:48)
[2023-04-25] MEDS: Pantoprazole 40 MG TABCR PO (19:02)
[2023-04-25] MEDS: guaiFENesin 600 MG TABCR PO (21:22)
[2023-04-26] MEDS: AMPICILLIN/SULBACTAM 3 GM in Normal Saline 100 ML IVPB ×2 (02:30→07:49)
[2023-04-26] MEDS: DOXYCYCLINE 100 MG in Normal Saline 100 ML IVPB (03:15)
[2023-04-26 07:05] LABS: Abs Immature Grans 0.04 10^3/uL (0.0-0.06); Absolute Basophil Count 0.02 10^3/uL (0.0-0.2); Basophils % 0.2; HCT 37.2 % (40.0-50.0); HGB 11.9 g/dL (13.5-17.5); Immature Grans % 0.4; MCH 28.9 pg (27.0-33.0); MCV 90 fL (80-95); MPV 9.4 fL (8.0-11.0); Monocytes % 8.1; Neutrophils % 82.3; Platelet Count 243 10^3/uL (130-400); RBC 4.12 10^6/uL (4.36-5.78); RDW 12.5 % (11.8-14.1); RDW-SD 41.3 fL; WBC 11.06 10^3/uL (4.4-10.8)
[2023-04-26 07:20] LABS: Anion Gap 7.8 mmol/L (3-11); BUN 31 mg/dL (7-18); CO2 30.2 mmol/L (21.0-32.0); CREATININE 1.2 mg/dL (0.70-1.30); Chloride 105 mmol/L (98-107); Estimated GFR 63.85 (mL/min/1.73m2); Glucose 136 mg/dL (74-106); Sodium 143 mmol/L (136-145)
[2023-04-26 07:27] VITALS: BP 147/69; PULSE 72; RESP 20; TEMP 36.2; O2SAT 96
[2023-04-26] MEDS: Sertraline 100 MG TAB PO (07:48)
[2023-04-26] MEDS: Atorvastatin 20 MG TAB PO (07:48)
[2023-04-26] MEDS: Pantoprazole 40 MG TABCR PO (07:48)
[2023-04-26] MEDS: guaiFENesin 600 MG TABCR PO (07:48)
[2023-04-26] MEDS: Lisinopril 10 MG TAB PO (07:49)
[2023-04-26] MEDS: Aspirin 81 MG CHEW PO (07:49)
[2023-04-26] MEDS: predniSONE 20 MG TAB 40 MG PO (07:49)
[2023-04-26] MEDS: Normal Saline Flush 10 ML SYR IVP (07:49)
[2023-04-26 08:21] VITALS: PULSE 75; RESP 18; RESP 5; RESP 9; O2SAT 96
[2023-04-26] MEDS: Albuterol/Ipratropium 3 ML UPD VIAL UPD ×2 (08:21→11:32)
[2023-04-26 08:22] VITALS: PULSE 78; RESP 17; RESP 9; O2SAT 96
--- NOTE | 2023-04-26 10:29 | PDOC.CMIN ---
Date of service: 04/26/23 Time of Service: 10:29 Care Management Initial Assmt Initial Assessment REASON FOR HOSPITALIZATION:: Bronchopneumonia, hypoxia PFSH All Active Problems (Updated 04/25/23 @ 18:32 by Douglas Celis MD) COPD exacerbation (Acute) Abdominal aortic aneurysm (Acute) Community acquired pneumonia (Acute) BERNARDA (acute kidney injury) (Acute) Medical History (Updated 04/25/23 @ 18:32 by Douglas Celis MD) Deafness Compensated by hearing aids Transient ischemic attack Coronary artery disease HTN (hypertension) Carotid stenosis Surgical History (Updated 04/25/23 @ 17:48 by Douglas Celis MD) Pilonidal cyst Social History (Updated 04/25/23 @ 17:47 by Douglas Celis MD) Smoking/Tobacco Use Status: Former Tobacco Use Quit Date: 01/29/18 Tobacco: How many years used: 53 Smoking risk assessment performed?: Yes Alcohol Intake: former Drug use: Never Housing: house Do you feel safe at home: Yes Do you feel safe in your relationship?: Yes
[2023-04-26 11:32] VITALS: PULSE 82; RESP 18; O2SAT 91
[2023-04-26 11:33] VITALS: PULSE 85; RESP 18; O2SAT 93
--- NOTE | 2023-04-26 12:05 | DSE_ITS ---
Date of service: 04/26/23 Time of Service: 12:05 DS: Diagnosis Discharge Diagnosis (1) COPD exacerbation: Status: Acute Discharge Plan Disposition Patient Disposition: Home Condition: Improving Discharge Details Reason For Visit: bronchopneumonia,hypoxia Admit Date/Time: 04/25/23 10:54 Admit Provider: Douglas Celis Attending Provider: Douglas Celis Primary Care Provider: Merrill Bales Hospital Course Hospital Course: Maycol presented to the emergency department with increased cough and sputum production and increased dyspnea. See admission H&P and ER note for details. In summary patient did quite well he was treated with prednisone 60 mg in the emergency department started on Augmentin in the emergency department. He subsequently was admitted to the hospital overnight for observation as he had persistent hypoxemia in the emergency department saturation of about 85%. However by time he came up to the medical floor he was doing markedly better he was watched overnight he had no further hypoxemia. He was treated with Unasyn and doxycycline and steroids. He will be discharged home on a prednisone taper along with 7 more days of Augmentin 875 mg twice daily and doxycycline 100 mg twice a day. He will be started on Spiriva. He has been given a prescription for albuterol inhaler to be used as needed 2 puffs every 4 hours as needed dyspnea or wheezing. He is to follow-up with his primary care provider at the [facility] in [facility] within the next week. Chest x-ray did not reveal any pneumonia or pleural effusions or CHF. Home Meds and New Rx's Prescriptions: New prednisone 10 mg tablet See Rx Instructions .ROUTE .COMPLEX Qty: 38 0RF Rx Instructions: 10 mg orally, 40 mg/d x 5d, 30 mg/d x3d, 20 mg/d x3d, 10 mg/d x 3d then off albuterol sulfate 90 mcg/actuation HFA aerosol inhaler 2 inh inhalation Q4H PRNQty: 8.5 0RF amoxicillin-pot clavulanate 875-125 mg tablet 1 tab PO BID AC 7 Days Qty: 14 0RF tiotropium bromide [Spiriva with HandiHaler] 18 mcg capsule, w/inhalation device 1 cap inhalation DAILY Qty: 30 0RF Rx Instructions: puncture 1 cap using device; one dose = 2 inhalations doxycycline hyclate 100 mg tablet 100 mg PO BID 7 Days Qty: 14 0RF Continued atorvastatin 20 mg Tablet 20 mg PO DAILY sertraline 100 mg Tablet 100 mg PO DAILY trazodone 100 mg Tablet 100 mg PO DAILY lisinopril 10 mg Tablet 10 mg PO DAILY aspirin [Nicola Chewable Aspirin] 81 mg Tablet,Chewable 1 tab PO DAILY Discharge Instructions Instructions: COPD (Chronic Obstructive Pulmonary Disease) (DC) Referrals: Merrill Baels [Primary Care Provider] - Activity:: Activity as Tolerated Equipment/Supplies:: No Equipment Needed Diet:: Normal Diet Discharge Orders Discharge Orders: Discharge Order (Routine); Ordered 04/26/23 Ordered By: Douglas Celis DS: Summary Time Spent with Patient providing and/or coordinating discharge services: Less than 30 minutes Specific discharge activities: Interview/exam of patient; review of discharge instructions, completion of prescriptions/discharge instructions; discussion w/ nursing and CM; documentation of hospital visit Status at Discharge Functional status at discharge: independent ambulation Overall status at discharge: patient is back to baseline Mental Status: mental status grossly normal Speech and Movement: speech and movement normal Mood: congruent mood Affect: normal affect Exam Narrative Exam Narrative: Maycol was seen sitting up in his bedside alert and oriented person place time circumstance no acute distress. He is able to talk in complete paragraphs without dyspnea. Lungs diffusely diminished but clear no rhonchi or wheezing Heart is regular rate and rhythm Extremities without peripheral cyanosis or edema. Maycol is eager to return home Psych Mental Status: mental status grossly normal Speech and Movement: speech and movement normal Mood: congruent mood Affect: normal affect DS: Data Vitals/I&O Vitals and I&O: Vital Signs Temperature 36.2 C L 04/26/23 07:27 Temperature Source Tympanic 04/26/23 07:27 Pulse 85 04/26/23 11:33 Pulse Rhythm Regular 04/26/23 09:43 Pulse 85 04/25/23 11:31 Respiratory Rate 18 04/26/23 11:33 Respiratory Effort Normal, Non-Labored 04/26/23 09:43 Respiratory Depth Normal 04/26/23 09:43 Respiratory Pattern Normal 04/26/23 09:43 Blood Pressure 147/69 H 04/26/23 07:27 Blood Pressure Mean 69 04/25/23 11:31 Pulse Oximetry 93 04/26/23 11:33 Oxygen Delivery Method Room Air 04/26/23 11:32 Oxygen Flow Rate 0 04/26/23 11:32 Pain Level 0 04/26/23 07:27 Comment SPO2 @ 86% on RA. Placed on 2L NC and spo2 increased to 93%. 04/25/23 22:43 Intake & Output 04/25/23 04/26/23 04/26/23 23:59 11:59 23:59 Intake Total 1240 / 1250 550 / 550 Output Total 250 / 250 Balance 1240 / 1250 300 / 300 Weight 67.5 kg Intake: IV 800 / 810 300 / 300 Oral 440 / 440 250 / 250 Output: Urine 250 / 250 Other: Urine Color Yellow Urine Appearance Clear Clear Urine Odor Strong Data Completed and Pending Completed studies during hospitalization [Text1]: Chest x-ray consistent with COPD with hyperinflated lungs with flattened diaphragms bilaterally no infiltrates no pleural effusions normal heart size. Labs on day of discharge: Labs from last 24 hours 04/26/23 04/26/23 04/25/23 09:15 06:35 16:00 WBC 11.06 H RBC 4.12 L Hgb 11.9 L Hct 37.2 L MCV 90 MCH 28.9 MCHC 32.0 RDW 12.5 Plt Count 243 MPV 9.4 Immature Gran % 0.4 Neutrophils % 82.3 Lymphocytes % 9.0 Monocytes % 8.1 Eosinophils % 0.0 Basophils % 0.2 Nucleated RBC % 0.0 Absolute Neutrophils 9.10 H Absolute Lymphocytes 1.00 L Absolute Monocytes 0.90 H Absolute Eosinophils 0.00 Absolute Basophils 0.02 Sodium 143 Potassium 4.0 Chloride 105 Carbon Dioxide 30.2 Anion Gap 7.8 BUN 31 H Creatinine 1.2 Est GFR (CKD-EPI 2020) 63.85 Glucose 136 H Calcium 9.0 Urine Legionella Ag Pending M. pneumoniae Source Pending M. pneumoniae (PCR) Pending Ur Strep pneumoniae Ag Pending Preliminary micro results at discharge 04/25/23 11:00 Sputum Culture - Preliminary Sputum Gram Negative [place] Bacillus Normal [place] PFSH All Active Problems COPD exacerbation (Acute) Abdominal aortic aneurysm (Acute) Community acquired pneumonia (Acute) BERNARDA (acute kidney injury) (Acute) Medical History Deafness Compensated by hearing aids Transient ischemic attack Coronary artery disease HTN (hypertension) Carotid stenosis Surgical History Pilonidal cyst Social History Smoking/Tobacco Use Status: Former Tobacco Use Quit Date: 01/29/18 Tobacco: How many years used: 53 Smoking risk assessment performed?: Yes Alcohol Intake: former Drug use: Never Housing: house Do you feel safe at home: Yes Do you feel safe in your relationship?: Yes Time Spent with Patient Time Spent with Patient: <45 minutes Time was spent: preparing to see the patient(eg.review tests), ordering medications,tests, procedures, referring, communicating with other health acute care registered nurse, indepentently interpreting results, counseling the patient and care coordination
[2023-04-26 21:06] LABS: Legionella Ag Detection Urine Negative (Negative)
[2023-04-28 01:05] LABS: Streptococcus Pneumoniae Ag, U Negative (Negative)
[2023-04-29 14:23] LABS: Mycoplasma Pneumoniae PCR Negative (Negative); Specimen source sputum
== END 2023-04-26 13:52 | disposition home or self-care (01) ==
LOC: ER 10:54 → MS 12:37
PROVIDERS: Admitting Provider Internal Medicine; Emergency Provider Emergency Medicine; PCP Internal Medicine; Visit Provider Internal Medicine
DX: J44.0 Chronic obstructive pulmonary disease with (acute) lower respiratory infection (principal); J18.0 Bronchopneumonia, unspecified organism; J44.1 Chronic obstructive pulmonary disease with (acute) exacerbation; I10 Essential (primary) hypertension; E78.5 Hyperlipidemia, unspecified; Z86.73 Personal history of transient ischemic attack (TIA), and cerebral infarction without residual deficits; I65.22 Occlusion and stenosis of left carotid artery; R06.02 Shortness of breath; R05.9 Cough, unspecified; D64.9 Anemia, unspecified; R09.02 Hypoxemia; I25.10 Atherosclerotic heart disease of native coronary artery without angina pectoris; H91.90 Unspecified hearing loss, unspecified ear; Z87.891 Personal history of nicotine dependence; Z79.82 Long term (current) use of aspirin; Z79.899 Other long term (current) drug therapy; I71.40 Abdominal aortic aneurysm, without rupture, unspecified; N17.9 Acute kidney failure, unspecified
CPT/HCPCS: 00123; 36415; 80048; 84145; 87077; 87449; 87637; 93005; 96360; 96365; 96366; 99285; J1650; 71046; 85025; 87070; 87205; 87581; 87899; 93010; 94640; 94667; 94668; 94760; 99223; 99238; G0378; J0295; J7512; J7620

== ENCOUNTER 2024-10-22 10:30 | Inpatient (IN) | payer OTHER, SELFPAY ==
[2024-10-22] VITALS (77 sets, daily range): BP systolic 89–132; BP diastolic 34–100; PULSE 68–156; RESP 21–49; TEMP 36.6–38; O2SAT 81–95
--- NOTE | 2024-10-22 10:30 | RT.EKG_ITS ---
APPROVED REPORT Exam: Resting ECG Reason for Exam: sob Patient Location: E HR:148 bpm ECG Measurements Heart Rate [address] [id number] P [id number] QRSd 101 QRS 81 QT 301 T -70 QTc 477 Conclusion Atrial fibrillation with rapid V-rate...A-rate 358 Repolarization abnormality, prob rate related...ST dep, T neg, tachycardia
[2024-10-22 10:52] LABS: Abs Immature Grans 0.06 10^3/uL (0.0-0.06); Absolute Basophil Count 0.02 10^3/uL (0.0-0.2); Absolute Eosinophil Count 0.02 10^3/uL (0.0-0.7); Absolute Monocyte Count 0.84 10^3/uL (0.1-0.8); Absolute Neutrophil Count 9.86 10^3/uL (1.2-6.7); Basophils % 0.2 %; Eosinophils % 0.2 %; HCT 40.6 % (40.0-50.0); Immature Grans % 0.5 %; Lymphocytes % 6.1 %; MCH 29.1 pg (27.0-33.0); MCV 91 fL (80-95); MPV 9.3 fL (8.0-11.0); Monocytes % 7.3 %; Neutrophils % 85.7 %; Platelet Count 217 10^3/uL (130-400); RBC 4.47 10^6/uL (4.36-5.78); RDW 12.9 % (11.8-14.1); RDW-SD 43.2 fL
[2024-10-22] MEDS: dilTIAZem 25 MG/5 ML VIAL 20 MG IVP (10:52)
--- NOTE | 2024-10-22 11:00 | DI.RAD_ITS ---
Exam(s) XR CHEST 2V PA LATERAL EXAM: XR CHEST 2V PA LATERAL CLINICAL HISTORY: cough, fever TECHNIQUE: 2D digital imaging was performed. Two views. COMPARISON: CR,XR XR CHEST 2V PA LATERAL from 04/25/[address] CHEST PE CTA from 10/22/2024 FINDINGS: HEART: Normal size. Aorta: Not dilated. PULMONARY VASCULATURE: Normal. MEDIASTINUM: Unremarkable. LUNGS: Diffuse infiltrate in the right lower lobe. Underlying interstitial changes and mild emphysem atous changes. PLEURAL SPACE: No effusion or pneumothorax. BONE:Old T10-T12 compression fractures. Degenerative changes in the spine and shoulders. SOFT TISSUES: Unremarkable. IMPRESSION: Right lower lobe pneumonia. The preliminary [facility] report was reviewed. DATA REPOSITORY: RADIATION DOSE DELIVERED:
[2024-10-22 11:16] LABS: ALT 20 U/L (16-63); AST 24 U/L (15-37); Albumin 2.7 g/dL (3.4-5.0); Alkaline Phosphatase 108 U/L (46-116); Anion Gap 9.4 mmol/L (3-11); BUN 33 mg/dL (7-18); Bilirubin, Total 1.1 mg/dL (0.2-1.0); CO2 30.6 mmol/L (21.0-32.0); CREATININE 1.5 mg/dL (0.70-1.30); Calcium 8.6 mg/dL (8.5-10.1); Chloride 100 mmol/L (98-107); Estimated GFR 48.25 (mL/min/1.73m2); Glucose 167 mg/dL (74-106); Potassium 3.3 mmol/L (3.5-5.1); Sodium 140 mmol/L (136-145); TSH (W/Ref FT4) 0.37 uIU/mL (0.36-3.74); Total Protein 7.1 g/dL (6.4-8.2); Troponin I 11 ng/L (<or=76)
[2024-10-22 11:18] LABS: BE (Venous) 3 mmol/L (-2-3); HCO3 (Venous) 29 mmol/L (23-28); Lactate 1.5 mmol/L (<or=2.0); O2 Sat (Venous) 69 %; TCO2 (Venous) 27 mmol/L (24-29); pCO2 (Venous) 54 mmHg (41-51); pH (Venous) 7.33 (7.31-7.41); pO2 (Venous) 41 mmHg
[2024-10-22] MEDS: Lactated Ringers 1,000 ML 1000 ML IV (11:19)
--- NOTE | 2024-10-22 11:19 | W.ED.GENAD ---
Discharge Plan Disposition Patient Disposition: Home Condition: Critical Discharge Details Chief Complaint: SOB Clinical Impression: Atrial fibrillation with rapid ventricular response, Pneumonia, BERNARDA (acute kidney injury), Hypokalemia Primary Care Provider: Merrill Bales ED Provider: Jose Angel Vargas Home Meds and New Rx's Prescriptions: No Action atorvastatin 20 mg Tablet 20 mg PO DAILY sertraline 100 mg Tablet 100 mg PO DAILY trazodone 100 mg Tablet 100 mg PO DAILY lisinopril 10 mg Tablet 20 mg PO DAILY aspirin [Nicola Chewable Aspirin] 81 mg Tablet,Chewable 1 tab PO DAILY albuterol sulfate 90 mcg/actuation HFA aerosol inhaler 2 inh inhalation Q4H PRNQty: 8.5 0RF tiotropium bromide [Spiriva with HandiHaler] 18 mcg capsule, w/inhalation device 1 cap inhalation DAILY Qty: 30 0RF Rx Instructions: puncture 1 cap using device; one dose = 2 inhalations ezetimibe 10 mg tablet 10 mg PO DAILY amlodipine 5 mg tablet 5 mg PO DAILY HPI General Mode of arrival: ambulatory. Date/Time Provider Initiated Documentation: 10/22/24 10:37. Limitations to Documentation: no limitations. Information obtained by: patient and family. HPI Narrative: HISTORY OF PRESENT ILLNESS The patient presents with fever, cough, and dyspnea. Fever started night (2200 hours) with cough. Fever now resolved, but cough persists. Supplemental oxygen provides some relief of dyspnea. No known sick contacts. No history of atrial fibrillation, previously monitored for cardiac irregularities. Related Data Home Medications ?Medication ?Instructions ?Recorded ?Confirmed aspirin 81 mg chewable tablet 1 tab PO DAILY 08/06/18 10/22/24 (Nicola Chewable Low Dose Aspirin) atorvastatin 20 mg tablet 20 mg PO DAILY 08/06/18 10/22/24 lisinopril 10 mg tablet 20 mg PO DAILY 08/06/18 10/22/24 sertraline 100 mg tablet 100 mg PO DAILY 08/06/18 10/22/24 trazodone 100 mg tablet 100 mg PO DAILY 08/06/18 10/22/24 albuterol sulfate 90 mcg/actuation 2 inh inhalation Q4H PRN #8.5 grams 04/26/23 10/22/24 aerosol inhaler tiotropium bromide 18 mcg capsule 1 cap inhalation DAILY #30 04/26/23 10/22/24 with inhalation device (Spiriva inhalations with HandiHaler) amlodipine 5 mg tablet 5 mg PO DAILY 10/22/24 10/22/24 ezetimibe 10 mg tablet 10 mg PO DAILY 10/22/24 10/22/24 Previous Rx's ?Medication ?Instructions ?Recorded albuterol sulfate 90 mcg/actuation 2 inh inhalation Q4H PRN #8.5 grams 04/26/23 aerosol inhaler tiotropium bromide 18 mcg capsule 1 cap inhalation DAILY #30 04/26/23 with inhalation device (Spiriva inhalations with HandiHaler) Allergies Allergy/AdvReac Type Severity Reaction Status Date / Time No Known Allergies Allergy Unverified 10/22/24 10:42 General Stated Complaint: SOB PARVIN: 2 Review of Systems All systems reviewed & are unremarkable except as noted in HPI and below Constitutional Constitutional: Reports fever(s) and Reports lethargy Cardiovascular Cardiovascular: Denies chest pain and Reports dyspnea Respiratory Respiratory: Reports as per HPI, Reports cough and Reports dyspnea Exam Const General: cooperative and no acute distress HENOR Mouth: moist mucous membranes Eyes Conjunctivae: normal conjunctivae Sclera: normal sclerae Resp Effort & Inspection: cough and labored Auscultation: rales and rhonchi Cardio Rate: tachycardic Rhythm: abnormal rhythm irregularly irregular GI Palpation: soft, not firm, no guarding, no masses, not rigid and nontender Skin General skin exam: no rashes or lesions noted Neuro General: patient alert, patient awake, patient oriented x3 and tone normal Extrem General: no edema Psych Appearance: grossly normal Mental Status: mental status grossly normal Speech and Movement: speech and movement normal Course Vital Signs Vital signs: Vital Signs Temperature 36.6 C 10/22/24 10:37 Pulse 151 H 10/22/24 10:37 Respiratory Rate 26 H 10/22/24 10:37 Blood Pressure 123/76 10/22/24 10:37 Pulse Oximetry 83 L 10/22/24 10:37 Temperature 36.6 C 10/22/24 10:37 Temperature Source Oral 10/22/24 10:37 Pulse 128 H 10/22/24 10:57 Respiratory Rate 44 H 10/22/24 11:15 Respiratory Effort Short of Breath 10/22/24 11:15 Respiratory Depth Shallow 10/22/24 11:15 Respiratory Pattern Tachypnea 10/22/24 11:15 Blood Pressure 123/76 10/22/24 10:37 Blood Pressure Position Sitting 10/22/24 10:37 Pulse Oximetry 83 L 10/22/24 10:37 Oxygen Delivery Method Room Air 10/22/24 10:37 Oxygen Flow Rate 0 10/22/24 10:37 Lab/Test Results Lab/Test Results: 10/22/24 11:05 Blood Blood Culture - Pending 10/22/24 11:14 Blood Blood Culture - Pending Laboratory Tests Range/Units 10/22/24 10:41 WBC (4.4-10.8) 10^3/uL 11.50 H RBC (4.36-5.78) 10^6/uL 4.47 Hgb (13.5-17.5) g/dL 13.0 L Hct (40.0-50.0) % 40.6 MCV (80-95) fL 91 MCH (27.0-33.0) pg 29.1 MCHC (32.0-36.0) % 32.0 RDW (11.8-14.1) % 12.9 Plt Count (130-400) 10^3/uL 217 MPV (8.0-11.0) fL 9.3 Immature Gran % % 0.5 Neutrophils % % 85.7 Lymphocytes % % 6.1 Monocytes % % 7.3 Eosinophils % % 0.2 Basophils % % 0.2 Nucleated RBC % (0.0-0.3) % 0.0 Absolute Neutrophils (1.2-6.7) 10^3/uL 9.86 H Absolute Lymphocytes (1.2-3.4) 10^3/uL 0.70 L Absolute Monocytes (0.1-0.8) 10^3/uL 0.84 H Absolute Eosinophils (0.0-0.7) 10^3/uL 0.02 Absolute Basophils (0.0-0.2) 10^3/uL 0.02 Medical Decision Making ASSESSMENT AND PLAN Initial Assessment: Patient presents with fever and cough since night, followed by dyspnea. Currently in atrial fibrillation, possibly exacerbated by illness. Patient is tachycardic, normotensive, hypoxic saturating 83% room air. Supplemental oxygen applied by Ventimask and oxygen saturation has improved to low 90s. Concern for pneumonia and sepsis. ED Course: - Supplemental oxygen applied for hypoxia - EKG was reviewed and interpreted by me: Atrial fibrillation with RVR 148 bpm, repolarization abnormality likely rate related. Please report. - Patient was initially given diltiazem 10 mg IV and heart rate did improve slightly. Blood pressure soft with systolic around 100. Holding infusion. - IV fluids administered - Chest imaging ordered - Blood cultures and lactate ordered. - COVID-19 and influenza tests ordered - cxr reviewed and interpreted by radiology: Right lower lung zone reticular opacities that may represent atelectasis versus infiltrates. - Labs reviewed and D-dimer is elevated. Suspect secondary to infection but consider acute pulmonary embolism. Plan to obtain CT of the chest. - BERNARDA noted with creatinine 1.5. Potassium low at 3.3. I will give K-dur 20meq. - 1208 -- BP improved. Patient remains tachycardic with HR 130s. Will start diltiazem infussion for rate control. Final Assessment: Patient's fever and cough have led to dyspnea, and he is currently in atrial fibrillation, which may be exacerbated by his illness. Treatment includes IV fluids, chest imaging, blood tests, COVID-19 and influenza tests, blood cultures for sepsis, and a diltiazem drip to manage heart rate. Clinical Impression: - Suspected pneumonia - Atrial fibrillation - BERNARDA - hypokalemia Disposition: - Discharge/Admission/Transfer: Not specified MDM Components Evaluation: - Number of Differential Diagnoses or Management Options: Suspected pneumonia, Atrial fibrillation - Amount and Complexity of Data Reviewed: Chest imaging, blood tests, COVID-19 and influenza tests, blood cultures - Risk of Complication and Morbidity or Mortality: High risk due to potential pneumonia and atrial fibrillation This document was written with the assistance of SAKSHI Malcolm. The patient consented to its use. Quality:[facility] Health Related Social Needs: No Data to Display [facility] All Active Problems (Updated 10/22/24 @ 12:54 by Jose Angel Vargas MD) Hypokalemia (Acute) BERNARDA (acute kidney injury) (Acute) Pneumonia (Acute) Atrial fibrillation with rapid ventricular response (Acute) CAP (community acquired pneumonia) (Acute) New onset a-fib (Acute) COPD exacerbation (Acute) Abdominal aortic aneurysm (Acute) Medical History Deafness Compensated by hearing aids Transient ischemic attack Coronary artery disease HTN (hypertension) Carotid stenosis Surgical History Pilonidal cyst Social History Smoking/Tobacco Use Status: Former Tobacco Use Quit Date: 01/29/18 Tobacco: How many years used: 53 Smoking risk assessment performed?: Yes Alcohol Intake: former Drug use: Never Substance use type: does not use Housing: house Do you feel safe at home: Yes Do you feel safe in your relationship?: Yes
[2024-10-22 11:20] LABS: D-Dimer 1982 ng/mlFEU (<500)
[2024-10-22 11:38] LABS: Bilirubin Negative (Negative); Blood Small (Negative); Clarity Clear (Clear); Glucose Negative (Negative); Ketones Negative (Negative); Leukocyte Esterase Negative (Negative); Nitrite Negative (Negative); Specific Gravity >= 1.030 (1.005-1.025); pH 5.5 (5-8)
[2024-10-22 11:45] LABS: Bacteria Negative HPF (Negative); C & S Indicated? No; Casts 3-5 Fine Granular LPF (Negative); Crystals Negative HPF (Negative); Epithelial Cells Rare HPF (Negative); Mucus Trace (Negative); WBC Negative HPF (0-5)
--- NOTE | 2024-10-22 11:45 | DI.CT_ITS ---
Exam(s) CT CHEST PE CTA EXAM: CT CHEST PE CTA CLINICAL HISTORY: shortness of breath, afib, pna. TECHNIQUE: Imaging Protocol: Axial CT angiography was performed with multi-slice acquisition and mu lti-planar reconstructions as well as axial, coronal and sagittal MIP reconstructions. Computer aided detection (CAD) was utilized. CONTRAST MATERIAL: Intravenous: Omnipaque 350 Contrast volume:100 ml COMPARISON: CT CT ABDOMEN/ PELVIS CTA from 08/06/2018 CR,XR XR CHEST 2V PA LATERAL from 04/25/2023 CR,XR XR CHEST 2V PA LATERAL from 10/22/2024 FINDINGS: Pulmonary Arteries: No evidence of filling defect to suggest pulmonary emboli. Mediastinum and Nidhi: Mild bilateral hilar and subcarinal adenopathy Pulmonary parenchyma: Dense infiltrate noted in the right lower lobe smaller infiltrate also seen in the lateral right middle lobe and inferior aspect of the right upper lobe. Lobe. No dominant measur able mass. Underlying moderate centrilobular emphysema. Pleura: No pneumothorax. Trace bilateral pleural effusions. Heart: Mild left atrial enlargement. Moderate coronary artery calcifications are seen. Aorta: Thoracic aorta non-dilated. No dissection. Atherosclerotic changes at the arch. Upper abdomen: No acute findings. Bones: Old mild T10 and T12 compression fractures. Tubes, Catheters, and Lines: None Soft tissues: Unremarkable. IMPRESSION: No evidence of pulmonary embolism. Large infiltrate in the posterior right lower lobe with smaller areas due to trace in the right upper and middle lobes, consistent with pneumonia. The preliminary [facility] report was reviewed. RADIATION DOSE DELIVERED: Total DLP DATA REPOSITORY: All CT scans at this facility are submitted to the National Radiology Data Registry (NRDR) Dose Index Registry (DIR) with the [employer] (A[employer]). RADIATION OPTIMIZATION: All CT scans at this facility use at least one of these dose optimization te chniques: automated exposure control; mA and/or kV adjustment per patient size (includes targeted exa ms where dose is matched to clinical indication); or iterative reconstruction.
--- NOTE | 2024-10-22 11:50 | DI.[facility]_ITS ---
PROCEDURE INFORMATION: Exam: XR Chest Exam date and time: 10/22/2024 11:44 AM Age: 74 years old Clinical indication: Cough and fever TECHNIQUE: Imaging protocol: Radiologic exam of the chest. Views: 2 views. COMPARISON: CR XR CHEST 2V PA LATERAL 04/25/2023 10:18 AM FINDINGS: Lungs: The lungs are hyperinflated, consistent with underlying small airways disease. Right lower lung zone reticular opacities that might represent atelectasis versus infiltrates. Pleural spaces: Unremarkable. No pleural effusion. No pneumothorax. Heart/Mediastinum: Unremarkable. No cardiomegaly. Vasculature: There are aortic arch calcifications. There is unfolding of the thoracic aorta. Bones/joints: The thoracic spine demonstrates mild degenerative changes at multiple levels. Moderate degenerative disease of bilateral acromioclavicular joints. There are moderate degenerative changes of the glenohumeral joints. IMPRESSION: Right lower lung zone reticular opacities that might represent atelectasis versus infiltrates. Dictated and Authenticated by: Hugo Mulligan MD. Orderin Alicia Walter MD
[2024-10-22] MEDS: Normal Saline - Diluent 50 ML VIAL IJ (12:09)
[2024-10-22] MEDS: DOXYCYCLINE 100 MG in Normal Saline 100 ML IVPB ×2 (12:10→12:19)
[2024-10-22] MEDS: Omnipaque 350 MG/ML 100 ML BTL IJ (12:10)
[2024-10-22] MEDS: cefTRIAXone 1 GM/50 ML BAG IVPB (12:10)
[2024-10-22] MEDS: Potassium Chloride 20 MEQ TABCR PO (12:19)
--- NOTE | 2024-10-22 12:44 | DI.[facility]_ITS ---
PROCEDURE INFORMATION: Exam: CTA Chest With Contrast Exam date and time: 10/22/2024 12:09 PM Age: 74 years old Clinical indication: Other: SOB, pna TECHNIQUE: Imaging protocol: Computed tomographic angiography of the chest with contrast. Exam focused on the arteries. 3D rendering (Not supervised by radiologist): MIP and/or 3D reconstructed images were created by the technologist. Radiation optimization: All CT scans at this facility use at least one of these dose optimization techniques: automated exposure control; mA and/or kV adjustment per patient size (includes targeted exams where dose is matched to clinical indication); or iterative reconstruction. Contrast material: OMNI 350; Contrast volume: 75 ml; Contrast route: INTRAVENOUS (IV); COMPARISON: CR XR CHEST 2V PA LATERAL 10/22/2024 11:44 AM FINDINGS: Pulmonary arteries: Normal. No pulmonary emboli. Aorta: Unremarkable. No aortic aneurysm. No aortic dissection. Lungs: Mild centrilobular emphysematous changes are present. Ground-glass opacities in the right lower lobe and posterior segment of the right upper lobe., suggestive of pneumonia. Pleural spaces: Trace bilateral pleural effusions. Heart: Unremarkable. No cardiomegaly. No pericardial effusion. Coronary arteries: There is moderate atherosclerotic calcification of the coronary arteries. Lymph nodes: Unremarkable. No enlarged lymph nodes. Bones/joints: The thoracic spine demonstrates mild degenerative changes at multiple levels. Chronic multilevel mild compression deformities of the thoracic spine. Soft tissues: Unremarkable. Other findings: The vasculature demonstrates diffuse mild atherosclerotic calcification. IMPRESSION: Right upper and lower lobe ground-glass infiltrates, suggestive of pneumonia. No pulmonary embolism. Dictated and Authenticated by: Hugo Mulligan MD. Orderin Alicia Walter MD
[2024-10-22] MEDS: dilTIAZem 125 MG in Normal Saline 100 ML IV (12:45)
[2024-10-22 12:48] LABS: Troponin I 12 ng/L (<or=76)
--- NOTE | 2024-10-22 12:52 | W.PM.HP.N ---
Date of service: 10/22/24 Time of Service: 12:52 Assessment and Plan Assessment and plan (1) New onset a-fib: Status: Acute Assessment and plan: -like caused by CAP as noted above -HR remained in the 130's despite IV dilt bolus in ED -started on dilt drip -will initiated PO dilt 60mg BID and titrate up as needed (2) CAP (community acquired pneumonia): Status: Acute Assessment and plan: -as seen on chest CT -does not meet criteria for sepsis at elevated HR is attributed to new onset a-fib RVR -started on doxy and CTX, will continue (3) Acute respiratory failure with hypoxia: Status: Acute Assessment and plan: -Likely secondary to community-acquired pneumonia and atrial fibrillation as noted above - Currently on 3 L oxy mask - Wean O2 as tolerated with goal saturation of 88 to 92% (4) COPD without exacerbation: Status: Acute Assessment and plan: - No wheezing noted on exam, therefore steroids have not been started - Continue home inhaler regimen (5) Coronary artery disease: Assessment and plan: - Continue home statin - Hold home lisinopril and amlodipine while uptitrating diltiazem, will restart as tolerated History of Present Illness History of Present Illness Chief Complaint: fever, cough, dyspnea Narrative: 74-year-old male with past medical history of hypertension, hyperlipidemia, COPD presents emergency department with fever cough and dyspnea. Patient states that beginning night started having a cough subjective fevers that had since resolved, however since that time his cough has persisted. He denies any sputum production, any sensation palpitations, headache, lightheadedness, dizziness, nausea vomiting or diarrhea. In the emergency department the patient was noted to being tachypneic and hypoxic and oxygen saturation in the mid 80s requiring 3 L oxy mask to maintain oxygen saturation greater than 92%. She also noted is being tachycardic which on EKG showed new atrial fibrillation with RVR. Patient was given a diltiazem IV which did not improve his rate and was subsequently placed on diltiazem drip. Additionally, imaging of his chest showed likely pneumonia for which he was started on doxycycline and ceftriaxone. At which time emergency room physician paged hospitalist for admission for patient with community-acquired pneumonia resulting in acute hypoxic respiratory failure and a new diagnosis of atrial fibrillation with rapid ventricular rate. Review of Systems All systems reviewed & are unremarkable except as noted in HPI and below PFSH All Active Problems (Updated 10/22/24 @ 16:39 by Ranjan Armijo MD) COPD without exacerbation (Acute) Acute respiratory failure with hypoxia (Acute) Hypokalemia (Acute) BERNARDA (acute kidney injury) (Acute) Pneumonia (Acute) Atrial fibrillation with rapid ventricular response (Acute) CAP (community acquired pneumonia) (Acute) New onset a-fib (Acute) COPD exacerbation (Acute) Abdominal aortic aneurysm (Acute) Medical History Deafness Compensated by hearing aids Transient ischemic attack Coronary artery disease HTN (hypertension) Carotid stenosis Surgical History Pilonidal cyst Social History Smoking/Tobacco Use Status: Former Tobacco Use Quit Date: 01/29/18 Tobacco: How many years used: 53 Smoking risk assessment performed?: Yes Alcohol Intake: former Drug use: Never Substance use type: does not use Housing: house Do you feel safe at home: Yes Do you feel safe in your relationship?: Yes Meds Allergies and Home Medications Allergies Allergy/AdvReac Type Severity Reaction Status Date / Time No Known Allergies Allergy Unverified 10/22/24 10:42 Home Medications ?Medication ?Instructions ?Recorded ?Confirmed ?Type aspirin 81 mg chewable tablet 1 tab PO DAILY 08/06/18 10/22/24 History (Nicola Chewable Low Dose Aspirin) atorvastatin 20 mg tablet 20 mg PO DAILY 08/06/18 10/22/24 History lisinopril 10 mg tablet 20 mg PO DAILY 08/06/18 10/22/24 History sertraline 100 mg tablet 100 mg PO DAILY 08/06/18 10/22/24 History trazodone 100 mg tablet 100 mg PO DAILY 08/06/18 10/22/24 History albuterol sulfate 90 mcg/actuation 2 inh inhalation Q4H PRN #8.5 grams 04/26/23 10/22/24 Rx aerosol inhaler tiotropium bromide 18 mcg capsule 1 cap inhalation DAILY #30 04/26/23 10/22/24 Rx with inhalation device (Spiriva inhalations with HandiHaler) amlodipine 5 mg tablet 5 mg PO DAILY 10/22/24 10/22/24 History ezetimibe 10 mg tablet 10 mg PO DAILY 10/22/24 10/22/24 History Exam Narrative Exam Narrative: Fatigued appearing older gentleman laying in bed in no acute distress, ANO x 4, 3 L oxy mask in place, heart irregularly irregular with rates between 80 and 90 bpm, lungs clear to auscultation bilaterally, abdomen soft, nontender, nondistended Results Labs 10/22/24 10:41 10/22/24 10:41 Labs: Laboratory Results - last 24 hr 10/22/24 10/22/24 10/22/24 10:41 11:05 11:25 WBC 11.50 H RBC 4.47 Hgb 13.0 L Hct 40.6 MCV 91 MCH 29.1 MCHC 32.0 RDW 12.9 Plt Count 217 MPV 9.3 Immature Gran % 0.5 Neutrophils % 85.7 Lymphocytes % 6.1 Monocytes % 7.3 Eosinophils % 0.2 Basophils % 0.2 Nucleated RBC % 0.0 Absolute Neutrophils 9.86 H Absolute Lymphocytes 0.70 L Absolute Monocytes 0.84 H Absolute Eosinophils 0.02 Absolute Basophils 0.02 D-Dimer 1982 H VBG pH 7.33 VBG pCO2 54 H VBG pO2 41 VBG HCO3 29 H VBG Total CO2 27 VBG O2 Saturation 69 VBG Base Excess 3 VBG Lactate 1.5 Sodium 140 Potassium 3.3 L Chloride 100 Carbon Dioxide 30.6 Anion Gap 9.4 BUN 33 H Creatinine 1.5 H Est GFR (CKD-EPI 2020) 48.25 Glucose 167 H Calcium 8.6 Magnesium 2.0 Total Bilirubin 1.1 H AST 24 ALT 20 Alkaline Phosphatase 108 Troponin I 11 Total Protein 7.1 Albumin 2.7 L TSH 0.37 Urine Color Yellow Urine Clarity Clear Urine pH 5.5 Ur Specific [place] >= 1.030 H Urine Protein 100 H Urine Ketones Negative Urine Blood Small H Urine Nitrite Negative Urine Bilirubin Negative Urine Urobilinogen 1.0 H Ur Leukocyte Esterase Negative Urine RBC 3-5 H Urine WBC Negative Ur Epithelial Cells Rare Urine Crystals Negative Urine Bacteria Negative Urine Casts 3-5 Fine Granular Urine Mucus Trace Ur Culture Indicated? No Urine Glucose Negative 10/22/24 12:15 WBC RBC Hgb Hct MCV MCH MCHC RDW Plt Count MPV Immature Gran % Neutrophils % Lymphocytes % Monocytes % Eosinophils % Basophils % Nucleated RBC % Absolute Neutrophils Absolute Lymphocytes Absolute Monocytes Absolute Eosinophils Absolute Basophils D-Dimer VBG pH VBG pCO2 VBG pO2 VBG HCO3 VBG Total CO2 VBG O2 Saturation VBG Base Excess VBG Lactate Sodium Potassium Chloride Carbon Dioxide Anion Gap BUN Creatinine Est GFR (CKD-EPI 2020) Glucose Calcium Magnesium Total Bilirubin AST ALT Alkaline Phosphatase Troponin I 12 Total Protein Albumin TSH Urine Color Urine Clarity Urine pH Ur Specific [place] Urine Protein Urine Ketones Urine Blood Urine Nitrite Urine Bilirubin Urine Urobilinogen Ur Leukocyte Esterase Urine RBC Urine WBC Ur Epithelial Cells Urine Crystals Urine Bacteria Urine Casts Urine Mucus Ur Culture Indicated? Urine Glucose Last Vital Signs Temp 97.8 F 10/22/24 10:37 Pulse 115 H 10/22/24 12:50 Resp 48 H 10/22/24 12:50 BP 116/53 L 10/22/24 12:46 Pulse Ox 91 L 10/22/24 12:50 Time Spent Time spent with Patient: >75 minutes Time was spent: preparing to see the patient(eg.review tests), obtaining and/or reviewing separately otained hiistory, ordering medications,tests, procedures, referring, communicating with other health post acute care nurse, indepentently interpreting results, counseling the patient and care coordination
[2024-10-22 13:15] LABS: COVID-19 PCR Negative (Negative); Influenza A PCR Negative (Negative); Influenza B PCR Negative (Negative); RSV PCR Negative (Negative)
[2024-10-22] MEDS: dilTIAZem 60 MG TAB PO ×2 (14:28→20:34)
--- NOTE | 2024-10-22 14:38 | W.PC.ACHO ---
Registration Status: Primary Language: Preferred Language: ED Information & Data Chief Complaint SOB 10/22/24 11:25 Triage Note SOB since in afib 10/22/24 10:37 hr 151 Medical / Surgical History (Last Reviewed 10/22/24 @ 11:21 by Jose Angel Vargas MD) Deafness Transient ischemic attack Coronary artery disease HTN (hypertension) Carotid stenosis (Last Reviewed 10/22/24 @ 11:21 by Jose Angel Vargas MD) Pilonidal cyst Most Recent Vital Signs Temperature 38 C H 10/22/24 13:52 Temperature Source Temporal Artery Scan 10/22/24 13:52 Pulse 101 H 10/22/24 14:31 Pulse 107 H 10/22/24 14:31 Respiratory Rate 28 H 10/22/24 14:31 Respiratory Effort Labored, Accessory Muscle Use 10/22/24 13:52 Respiratory Depth Shallow 10/22/24 13:52 Respiratory Pattern Hyperpnea 10/22/24 13:52 Blood Pressure 109/62 10/22/24 14:31 Blood Pressure Mean 76 10/22/24 14:31 Blood Pressure Position Supine 10/22/24 13:52 Pulse Oximetry 92 10/22/24 14:20 Oxygen Delivery Method OxyMask 10/22/24 13:52 Oxygen Flow Rate 3 10/22/24 13:52 Fraction of Inspired Oxygen (FIO2) 3 10/22/24 10:41 Pain Level 0 10/22/24 13:52 Allergies No Known Allergies Allergy (Unverified 10/22/24 10:42) Active Medications Generic Name Dose Route Start Last Admin Trade Name Freq PRN Reason Stop Dose Admin Diltiazem HCl 60 mg 10/22/24 14:00 10/22/24 14:28 Diltiazem 60 Mg Tab PO 60 mg BID HADLEY Administration Iohexol 100 ml 10/22/24 12:15 10/22/24 12:10 Omnipaque 350 Mg/Ml 100 Ml Btl IJ 11/21/24 23:59 75 ml DIRECTED HADLEY Administration Sodium Chloride 50 ml 10/22/24 12:15 10/22/24 12:09 Normal Saline - Diluent 50 Ml Vial IJ 50 ml .FOR DI USE HADLEY Administration IV IV Catheter Type [Left Forearm Peripheral IV ] IV Catheter Type [Left Peripheral IV Antecubital] IV Catheter Gauge [Left 22 Forearm] IV Catheter Gauge [Left 22 Antecubital] Diet Orders Category Date Time Status Heart Healthy Eating [DIET] Nutrition 10/22/24 Dinner Active Diagnostics 10/22/24 10/22/24 10/22/24 Range/Units 12:15 11:25 11:20 WBC (4.4-10.8) 10^3/uL RBC (4.36-5.78) 10^6/uL Hgb (13.5-17.5) g/dL Hct (40.0-50.0) % MCV (80-95) fL MCH (27.0-33.0) pg MCHC (32.0-36.0) % RDW (11.8-14.1) % Plt Count (130-400) 10^3/uL MPV (8.0-11.0) fL Immature Gran % % Neutrophils % % Lymphocytes % % Monocytes % % Eosinophils % % Basophils % % Nucleated RBC % (0.0-0.3) % Absolute Neutrophils (1.2-6.7) 10^3/uL Absolute Lymphocytes (1.2-3.4) 10^3/uL Absolute Monocytes (0.1-0.8) 10^3/uL Absolute Eosinophils (0.0-0.7) 10^3/uL Absolute Basophils (0.0-0.2) 10^3/uL D-Dimer (<500) ng/mlFEU VBG pH (7.31-7.41) VBG pCO2 (41-51) mmHg VBG pO2 mmHg VBG HCO3 (23-28) mmol/L VBG Total CO2 (24-29) mmol/L VBG O2 Saturation % VBG Base Excess (-2-3) mmol/L VBG Lactate (<or=2.0) mmol/L Sodium (136-145) mmol/L Potassium (3.5-5.1) mmol/L Chloride (98-107) mmol/L Carbon Dioxide (21.0-32.0) mmol/L Anion Gap (3-11) mmol/L BUN (7-18) mg/dL Creatinine (0.70-1.30) mg/dL Est GFR (CKD-EPI 2020) (mL/min/1.73m2) Glucose (74-106) mg/dL Calcium (8.5-10.1) mg/dL Magnesium (1.8-2.4) mg/dL Total Bilirubin (0.2-1.0) mg/dL AST (15-37) U/L ALT (16-63) U/L Alkaline Phosphatase (46-116) U/L Troponin I 12 (<or=76) ng/L Total Protein (6.4-8.2) g/dL Albumin (3.4-5.0) g/dL TSH (0.36-3.74) uIU/mL Urine Color Yellow (Yellow) Urine Clarity Clear (Clear) Urine pH 5.5 (5-8) Ur Specific [place] >= 1.030 H (1.005-1.025) Urine Protein 100 H (Neg-Trace) mg/dL Urine Ketones Negative (Negative) mg/dL Urine Blood Small H (Negative) Urine Nitrite Negative (Negative) Urine Bilirubin Negative (Negative) Urine Urobilinogen 1.0 H (Up to 0.2) mg/dL Ur Leukocyte Esterase Negative (Negative) Urine RBC 3-5 H (0-2) HPF Urine WBC Negative (0-5) HPF Ur Epithelial Cells Rare (Negative) HPF Urine Crystals Negative (Negative) HPF Urine Bacteria Negative (Negative) HPF Urine Casts 3-5 Fine Granular (Negative) LPF Urine Mucus Trace (Negative) Ur Culture Indicated? No Urine Glucose Negative (Negative) mg/dL COVID-19 Source Not Applicable SARS-CoV-2 (PCR) Negative (Negative) Influenza Type A (PCR) Negative (Negative) Influenza Type B (PCR) Negative (Negative) RSV (PCR) Negative (Negative) 10/22/24 10/22/24 Range/Units 11:05 10:41 WBC 11.50 H (4.4-10.8) 10^3/uL RBC 4.47 (4.36-5.78) 10^6/uL Hgb 13.0 L (13.5-17.5) g/dL Hct 40.6 (40.0-50.0) % MCV 91 (80-95) fL MCH 29.1 (27.0-33.0) pg MCHC 32.0 (32.0-36.0) % RDW 12.9 (11.8-14.1) % Plt Count 217 (130-400) 10^3/uL MPV 9.3 (8.0-11.0) fL Immature Gran % 0.5 % Neutrophils % 85.7 % Lymphocytes % 6.1 % Monocytes % 7.3 % Eosinophils % 0.2 % Basophils % 0.2 % Nucleated RBC % 0.0 (0.0-0.3) % Absolute Neutrophils 9.86 H (1.2-6.7) 10^3/uL Absolute Lymphocytes 0.70 L (1.2-3.4) 10^3/uL Absolute Monocytes 0.84 H (0.1-0.8) 10^3/uL Absolute Eosinophils 0.02 (0.0-0.7) 10^3/uL Absolute Basophils 0.02 (0.0-0.2) 10^3/uL D-Dimer 1982 H (<500) ng/mlFEU VBG pH 7.33 (7.31-7.41) VBG pCO2 54 H (41-51) mmHg VBG pO2 41 mmHg VBG HCO3 29 H (23-28) mmol/L VBG Total CO2 27 (24-29) mmol/L VBG O2 Saturation 69 % VBG Base Excess 3 (-2-3) mmol/L VBG Lactate 1.5 (<or=2.0) mmol/L Sodium 140 (136-145) mmol/L Potassium 3.3 L (3.5-5.1) mmol/L Chloride 100 (98-107) mmol/L Carbon Dioxide 30.6 (21.0-32.0) mmol/L Anion Gap 9.4 (3-11) mmol/L BUN 33 H (7-18) mg/dL Creatinine 1.5 H (0.70-1.30) mg/dL Est GFR (CKD-EPI 2020) 48.25 (mL/min/1.73m2) Glucose 167 H (74-106) mg/dL Calcium 8.6 (8.5-10.1) mg/dL Magnesium 2.0 (1.8-2.4) mg/dL Total Bilirubin 1.1 H (0.2-1.0) mg/dL AST 24 (15-37) U/L ALT 20 (16-63) U/L Alkaline Phosphatase 108 (46-116) U/L Troponin I 11 (<or=76) ng/L Total Protein 7.1 (6.4-8.2) g/dL Albumin 2.7 L (3.4-5.0) g/dL TSH 0.37 (0.36-3.74) uIU/mL Urine Color (Yellow) Urine Clarity (Clear) Urine pH (5-8) Ur Specific [place] (1.005-1.025) Urine Protein (Neg-Trace) mg/dL Urine Ketones (Negative) mg/dL Urine Blood (Negative) Urine Nitrite (Negative) Urine Bilirubin (Negative) Urine Urobilinogen (Up to 0.2) mg/dL Ur Leukocyte Esterase (Negative) Urine RBC (0-2) HPF Urine WBC (0-5) HPF Ur Epithelial Cells (Negative) HPF Urine Crystals (Negative) HPF Urine Bacteria (Negative) HPF Urine Casts (Negative) LPF Urine Mucus (Negative) Ur Culture Indicated? Urine Glucose (Negative) mg/dL COVID-19 Source SARS-CoV-2 (PCR) (Negative) Influenza Type A (PCR) (Negative) Influenza Type B (PCR) (Negative) RSV (PCR) (Negative) 10/22/24 12:15 Blood Culture - Pending Blood 10/22/24 11:05 Blood Culture - Pending Blood Intake and Output - 24 Hour Total 10/22/24 10:30 thru 10/22/24 14:20 Intake Total 1165 Balance 1165 Weight 66.7 kg Intake: IV 1165 Falls Risk Assessment History of Falls Previous History 10/22/24 13:52 Contributing Factors Confusion,Unstable, 10/22/24 13:52 Impairments Ambulatory Aids Independent 10/22/24 13:52 Tubes/Lines W/no contributing factors 10/22/24 13:52 Gait Evaluation W/any additional score 10/22/24 13:52 Cognition Cognitive impairment 10/22/24 13:52 Fall Total Score 69 10/22/24 13:52 Level of Risk High Risk 10/22/24 13:52 Problems (Last Reviewed 10/22/24 @ 11:21 by Jose Angel Vargas MD) CAP (community acquired pneumonia) (Acute) New onset a-fib (Acute) v v v v v v v v v Sending and/or Receiving Nurses: Please use comment section below to note any information pertinent to the patient hand-off not included above. Information / Comments: Report received from:Gabby Méndez
[2024-10-22] MEDS: Normal Saline Flush 10 ML SYR IVP (17:19)
[2024-10-22] MEDS: traZODone 100 MG TAB PO (20:35)
[2024-10-22] MEDS: Doxycycline Hyclate 100 MG CAP PO (20:35)
[2024-10-22] MEDS: Lactated Ringers 1,000 ML 30 ML IV (20:37)
[2024-10-23] VITALS (27 sets, daily range): BP systolic 88–147; BP diastolic 44–75; PULSE 63–114; RESP 15–38; TEMP 36.9–38; O2SAT 84–95
[2024-10-23] MEDS: Acetaminophen 325 MG TAB PO (00:09)
[2024-10-23 05:28] LABS: Anion Gap 5.2 mmol/L (3-11); BUN 35 mg/dL (7-18); CO2 28.8 mmol/L (21.0-32.0); CREATININE 1.3 mg/dL (0.70-1.30); Calcium 8.3 mg/dL (8.5-10.1); Chloride 106 mmol/L (98-107); Estimated GFR 57.29 (mL/min/1.73m2); Glucose 134 mg/dL (74-106); Potassium 4.1 mmol/L (3.5-5.1); Sodium 140 mmol/L (136-145)
[2024-10-23] MEDS: Tiotropium Bromide-Respimat 10 PUFF INH 2 PUFF IH (08:09)
[2024-10-23] MEDS: Doxycycline Hyclate 100 MG CAP PO ×2 (09:12→19:53)
[2024-10-23] MEDS: Enoxaparin 40 MG/0.4 ML SYR SC (09:12)
[2024-10-23] MEDS: Ezetimibe 10 MG TAB PO (09:12)
[2024-10-23] MEDS: Benzonatate 100 MG CAP PO ×3 (09:13→19:53)
[2024-10-23] MEDS: Normal Saline Flush 10 ML SYR IVP ×2 (09:13→19:54)
[2024-10-23] MEDS: guaiFENesin 600 MG TABCR PO ×2 (09:13→19:53)
[2024-10-23] MEDS: dilTIAZem CD 120 MG CAPCR PO (09:13)
[2024-10-23] MEDS: Atorvastatin 20 MG TAB PO (09:13)
[2024-10-23] MEDS: Aspirin 81 MG CHEW PO (09:13)
[2024-10-23] MEDS: Sertraline 100 MG TAB PO (09:13)
[2024-10-23] MEDS: cefTRIAXone 1 GM/50 ML BAG IVPB (11:49)
--- NOTE | 2024-10-23 13:20 | W.PC.ACHO ---
Registration Status: Primary Language: Preferred Language: ED Information & Data Chief Complaint SOB 10/22/24 11:25 Triage Note SOB since in afib 10/22/24 10:37 hr 151 Medical / Surgical History (Last Reviewed 10/22/24 @ 11:21 by Jose Angel Vargas MD) Deafness Transient ischemic attack Coronary artery disease HTN (hypertension) Carotid stenosis (Last Reviewed 10/22/24 @ 11:21 by Jose Angel Vargas MD) Pilonidal cyst Most Recent Vital Signs Temperature 99.1 F 10/23/24 08:00 Temperature Source Temporal Artery Scan 10/23/24 08:00 Pulse 87 10/23/24 12:01 Pulse 101 H 10/23/24 12:01 Respiratory Rate 29 H 10/23/24 12:01 Respiratory Effort Labored, Accessory Muscle Use 10/22/24 13:52 Respiratory Depth Shallow 10/22/24 13:52 Respiratory Pattern Hyperpnea 10/22/24 13:52 Blood Pressure 117/59 L 10/23/24 12:01 Blood Pressure Mean 76 10/23/24 12:01 Blood Pressure Position Supine 10/22/24 13:52 Pulse Oximetry 93 10/23/24 12:01 Oxygen Delivery Method Nasal Cannula 10/23/24 08:12 Oxygen Flow Rate 3 10/23/24 08:12 Fraction of Inspired Oxygen (FIO2) 3 10/22/24 10:41 Pain Level 5 10/23/24 12:37 Comment vitals done in ICU with capture monitor vitals worklist intervention 10/23/24 11:23 Allergies No Known Allergies Allergy (Unverified 10/22/24 10:42) Active Medications Generic Name Dose Route Start Last Admin Trade Name Freq PRN Reason Stop Dose Admin Acetaminophen 0 mg 10/22/24 13:49 10/23/24 00:09 Acetaminophen 325 Mg Tab PO 650 mg Q4H PRN PRN Administration Aspirin 81 mg 10/23/24 08:30 10/23/24 09:13 Aspirin 81 Mg Chew PO 81 mg DAILY HADLEY Administration Atorvastatin Calcium 20 mg 10/23/24 08:30 10/23/24 09:13 Atorvastatin 20 Mg Tab PO 20 mg DAILY HADLEY Administration Benzonatate 100 mg 10/23/24 08:30 10/23/24 09:13 Benzonatate 100 Mg Cap PO 100 mg TID HADLEY Administration Diltiazem HCl 120 mg 10/23/24 08:30 10/23/24 09:13 Diltiazem Cd 120 Mg Capcr PO 120 mg QAM HADLEY Administration Doxycycline Hyclate 100 mg 10/22/24 20:00 10/23/24 09:12 Doxycycline Hyclate 100 Mg Cap PO 100 mg BID HADLEY Administration Ezetimibe 10 mg 10/23/24 08:30 10/23/24 09:12 Ezetimibe 10 Mg Tab PO 10 mg DAILY HADLEY Administration Enoxaparin Sodium 40 mg 10/23/24 08:30 10/23/24 09:12 Enoxaparin 40 Mg/0.4 Ml Syr SC 40 mg DAILY HADLEY Administration Guaifenesin 600 mg 10/23/24 08:30 10/23/24 09:13 Guaifenesin 600 Mg Tabcr PO 600 mg BID HADLEY Administration Ceftriaxone Sodium/Dextrose 1 gm in 50 mls @ 100 mls/hr 10/23/24 12:00 10/23/24 12:36 Rocephin IVPB Infused Q24H HADLEY Infusion Sertraline HCl 100 mg 10/23/24 08:30 10/23/24 09:13 Sertraline 100 Mg Tab PO 100 mg DAILY HADLEY Administration Sodium Chloride 0 ml 10/22/24 20:00 10/23/24 09:13 Normal Saline Flush 10 Ml Syr IVP 10 ml BID HADLEY Administration Tiotropium [place] 2 puff 10/23/24 08:30 10/23/24 08:09 Tiotropium [place]-Respimat 10 Puff Inh IH 2 inh DAILY HADLEY Administration Trazodone HCl 100 mg 10/22/24 20:00 10/22/24 20:35 Trazodone 100 Mg Tab PO 100 mg HS HADLEY Administration IV IV Catheter Type [Right Saline Lock Antecubital] IV Catheter Type [Left Forearm Peripheral IV ] IV Catheter Type [Left Peripheral IV Antecubital] IV Catheter Gauge [Right 18 Antecubital] IV Catheter Gauge [Left 22 Forearm] IV Catheter Gauge [Left 22 Antecubital] Diagnostics 10/23/24 10/22/24 Range/Units 04:47 11:20 Sodium 140 (136-145) mmol/L Potassium 4.1 (3.5-5.1) mmol/L Chloride 106 (98-107) mmol/L Carbon Dioxide 28.8 (21.0-32.0) mmol/L Anion Gap 5.2 (3-11) mmol/L BUN 35 H (7-18) mg/dL Creatinine 1.3 (0.70-1.30) mg/dL Est GFR (CKD-EPI 2020) 57.29 (mL/min/1.73m2) Glucose 134 H (74-106) mg/dL Calcium 8.3 L (8.5-10.1) mg/dL COVID-19 Source Not Applicable SARS-CoV-2 (PCR) Negative (Negative) Influenza Type A (PCR) Negative (Negative) Influenza Type B (PCR) Negative (Negative) RSV (PCR) Negative (Negative) 10/22/24 12:15 Blood Culture - Pending Blood 10/22/24 11:05 Blood Culture - Pending Blood Intake and Output - 24 Hour Total 10/22/24 10:30 thru 10/23/24 12:36 Intake Total 1732.499 Output Total 250 Balance 1482.499 Weight 147 lb 0.773 oz Intake: IV 1270.499 Oral 462 Output: Urine 250 Other: Urine Color Light Annelise Urine Appearance Sediment Urine Odor Normal Falls Risk Assessment History of Falls Previous History 10/22/24 13:52 Contributing Factors Confusion,Unstable, 10/22/24 13:52 Impairments Ambulatory Aids Independent 10/22/24 13:52 Tubes/Lines W/no contributing factors 10/22/24 13:52 Gait Evaluation W/any additional score 10/22/24 13:52 Cognition Cognitive impairment 10/22/24 13:52 Fall Total Score 69 10/22/24 13:52 Level of Risk High Risk 10/22/24 13:52 Problems (Last Reviewed 10/22/24 @ 11:21 by Jose Angel Vargas MD) COPD without exacerbation (Acute) Acute respiratory failure with hypoxia (Acute) CAP (community acquired pneumonia) (Acute) New onset a-fib (Acute) v v v v v v v v v Sending and/or Receiving Nurses: Please use comment section below to note any information pertinent to the patient hand-off not included above. Information / Comments: Report received from: Zonia Russ RN
--- NOTE | 2024-10-23 13:35 | W.PM.PROGNOT ---
Date of Service Date of service: 10/23/24 Time of Service: 13:36 Assessment and Plan Assessment and plan (1) New onset a-fib: Status: Acute Assessment and plan: -like caused by CAP as noted above -Now rate controlled on oral diltiazem, transitioned to long acting this morning (2) CAP (community acquired pneumonia): Status: Acute Assessment and plan: -as seen on chest CT -started on doxy and CTX, will continue (3) Acute respiratory failure with hypoxia: Status: Acute Assessment and plan: -Likely secondary to community-acquired pneumonia and atrial fibrillation as noted above - He continues to require 3 liters. - Wean O2 as tolerated with goal saturation of 88 to 92% (4) COPD without exacerbation: Status: Acute Assessment and plan: - No wheezing noted on exam, but with ongoing hypoxia and pneumonia as above, will start prednisone - Continue home inhaler regimen (5) Coronary artery disease: Assessment and plan: - Continue home statin - Hold home lisinopril and amlodipine while uptitrating diltiazem, will restart lisinopril if BP going up. - tank terminal gauger metprolol may be better option for rate control than diltiazem, but responded to dilt and no active CHF so no change for now. (6) RUQ pain: Status: Acute Assessment and plan: a/w RLL pneumonia, muscular pain with cough, but will follow LFTs, image if worsening. Subjective Subjective Patient reports: no new complaints and tolerating a regular diet; denies diarrhea, nausea, vomiting or fever Interval history since last seen: Off diltiazem drip, on 60mg po BID He feels okay this morning, other than cough that kept him up all night. Hurts in RUQ to cough and to breath deep. He is eating/drinking. Exam Narrative Exam Narrative: Fatigued appearing older gentleman sitting up in bed in no acute distress, ANO x 4, [address], heart irregularly irregular with rates between 70 and 90 bpm, lungs clear to auscultation bilaterally except diminished right base. abdomen soft, tender in RUQ but no masses, nondistended, +BS. no C/C/edema Objective Last Vital Signs Temp 37.3 C 10/23/24 08:00 Pulse 87 10/23/24 12:01 Resp 29 H 10/23/24 12:01 BP 117/59 L 10/23/24 12:01 Pulse Ox 93 10/23/24 12:01 Laboratory Results - last 24 hr 10/23/24 04:47 Sodium 140 Potassium 4.1 Chloride 106 Carbon Dioxide 28.8 Anion Gap 5.2 BUN 35 H Creatinine 1.3 Est GFR (CKD-EPI 2020) 57.29 Glucose 134 H Calcium 8.3 L Time Spent with Patient Time Spent with Patient: >50 minutes Time was spent: preparing to see the patient(eg.review tests), obtaining and/or reviewing separately otained hiistory, ordering medications,tests, procedures, referring, communicating with other health personal care attendant, indepentently interpreting results, counseling the patient and care coordination
[2024-10-23] MEDS: predniSONE 20 MG TAB 40 MG PO (15:06)
[2024-10-23] MEDS: traZODone 100 MG TAB PO (19:53)
[2024-10-24] VITALS (7 sets, daily range): BP systolic 118–150; BP diastolic 60–81; PULSE 57–120; RESP 2–20; TEMP 36.6–37; O2SAT 90–96
[2024-10-24 06:33] LABS: ALT 36 U/L (16-63); AST 33 U/L (15-37); Alkaline Phosphatase 97 U/L (46-116); Anion Gap 5.6 mmol/L (3-11); BUN 28 mg/dL (7-18); Bilirubin, Total 0.3 mg/dL (0.2-1.0); CO2 28.4 mmol/L (21.0-32.0); CREATININE 1.1 mg/dL (0.70-1.30); Calcium 8.3 mg/dL (8.5-10.1); Chloride 107 mmol/L (98-107); Estimated GFR 70.01 (mL/min/1.73m2); Glucose 203 mg/dL (74-106); Potassium 3.3 mmol/L (3.5-5.1); Sodium 141 mmol/L (136-145); Total Protein 5.9 g/dL (6.4-8.2)
[2024-10-24] MEDS: Tiotropium Bromide-Respimat 10 PUFF INH 2 PUFF IH (08:18)
[2024-10-24] MEDS: Ezetimibe 10 MG TAB PO (08:34)
[2024-10-24] MEDS: Sertraline 100 MG TAB PO (08:34)
[2024-10-24] MEDS: dilTIAZem CD 120 MG CAPCR PO (08:34)
[2024-10-24] MEDS: Atorvastatin 20 MG TAB PO (08:34)
[2024-10-24] MEDS: Enoxaparin 40 MG/0.4 ML SYR SC (08:34)
[2024-10-24] MEDS: predniSONE 20 MG TAB 40 MG PO (08:34)
[2024-10-24] MEDS: guaiFENesin 600 MG TABCR PO ×2 (08:35→19:56)
[2024-10-24] MEDS: Doxycycline Hyclate 100 MG CAP PO ×2 (08:36→19:56)
[2024-10-24] MEDS: Aspirin 81 MG CHEW PO (08:36)
[2024-10-24] MEDS: Normal Saline Flush 10 ML SYR IVP ×2 (08:36→19:55)
[2024-10-24] MEDS: Benzonatate 100 MG CAP PO ×3 (08:36→19:56)
--- NOTE | 2024-10-24 09:56 | PDOC.CMIN ---
Date of service: 10/24/24 Time of Service: 09:56 Care Management Initial Assmt Initial Assessment Reason for Hospitalization: New a-fib with RVR, CAP Functional Status/Living Situation Patient Presentation: Erick was lying in bed, visiting with Madelyn (his ) in the room, when CM arrived. Eirck was pleasant and willing to engage in conversation. He presented to the ED with fever, cough, and dyspnea. Erick is currently living in [place], with Madelyn, in their single family home. He has 2 daughter, who are both living in [place], [place]. He states that he enjoy's spending time with them. Erick also has family here, who are strong supports for him. Him and Madelyn are both driving and state they do not receive any services in their home. [facility]. He states that he would like to go home, but will stay until medically ready. When Erick leaves, Madelyn will transport. CM will continue to follow. Town of Residence: [place] Significant Other/Family: Local Natural Supports: Aaron and his Fernando Nichols (daughter), and Cathy (daughter), Madelyn, and friends Employment Status: Retired Instrumental Activities of Daily Living (ADLs): Requires support Activities/Hobbies/SocialSupport: Loves fishing, and social gatherings with family and friends Medications Medication Management: No Issues/Barriers identified ([facility] mail services) Physical Functioning/Mobility Assistive Device: n/a Advance Directives Advance Directives: Do you have an Advance Directive: Y 08/06/18 12:07 AD On File at [facility]: Y 04/25/23 19:07 Date Asked 11/10/10 08/06/18 11:14 AD Date Reviewed 10/22/24 10/22/24 12:55 COLST On File at [facility] COLST Date Scanned Code Status Resuscitation Status Full Code Portal Pt does not currently have a portal and education provided: Yes Insurance Coverage/Financial Issues Insurance: [place] Financial Issues: None Care Team Visit Care Team Role Provider Type Manny Irwin MD [facility] STAFF PHYSICIAN Merrill Bales Primary Care Provider NON-[facility] STAFF PHYSICIAN Jose Angel Vargas MD Emergency Provider [facility] STAFF PHYSICIAN Ranjan Armijo MD Admit Provider [facility] STAFF PHYSICIAN Attending Provider Discharge Potential Discharge Needs: PT Evaluation and PCP F/U Appt Anticipated Barriers to Discharge: None Identified Patient/Family Education Needs: Review discharge instructions, discuss Ask Me Three Transportation: Private vehicle Plan: Anticipate Erick will return home once medically ready. He will follow up with his PCP and continue per his plan of care. Nabil will transport via private vehicle by [employer]. Social Determinants of Health Screening Social Determinants of health last assessed in clinic: 10/24/24 Will the Patient Participate in the Screening?: Yes Do you worry about having a steady place to live?: no Problems where you live: no known problems In the past 12 months, have you had to go without electric, gas, oil or water in your home?: no 1. Within the past 12 months, we worried whether our food would run out before we got money to buy more.: Never true 2. Within the past 12 months, the food we bought just didn't last and we didn't have money to get more.: Never true Has lack of transportation kept you from medical appointments or from doing things needed for daily living?: no Has anyone in your life made you feel unsafe or unsupported?: no How hard is it for you to pay for the very basics like food, housing, medical care, and heating? Would you say it is:: Not hard at all Do you want help finding or keeping work or a job?: I do not need or want help If for any reason you need help with day-to-day activities such as bathing, preparing meals, shopping, managing finances, etc., do you get the help you need?: I don?t need any help How often do you feel lonely or isolated from those around you?: Never Do you speak a language other than Wallisian at home?: No Does the patient want assistance with any of the above?: No PFSH All Active Problems (Updated 10/23/24 @ 13:49 by Manny Irwin) RUQ pain (Acute) COPD without exacerbation (Acute) Acute respiratory failure with hypoxia (Acute) Hypokalemia (Acute) BERNARDA (acute kidney injury) (Acute) Pneumonia (Acute) Atrial fibrillation with rapid ventricular response (Acute) CAP (community acquired pneumonia) (Acute) New onset a-fib (Acute) COPD exacerbation (Acute) Abdominal aortic aneurysm (Acute) Medical History Deafness Compensated by hearing aids Transient ischemic attack Coronary artery disease HTN (hypertension) Carotid stenosis Surgical History Pilonidal cyst Social History Smoking/Tobacco Use Status: Former Tobacco Use Quit Date: 01/29/18 Tobacco: How many years used: 53 Smoking risk assessment performed?: Yes Alcohol Intake: former Drug use: Never Substance use type: does not use Housing: house Do you feel safe at home: Yes Do you feel safe in your relationship?: Yes Readmission Within the Past 30 Days Yes or No: No
[2024-10-24] MEDS: Potassium Chloride 20 MEQ TABCR 40 MEQ PO ×2 (11:20→19:55)
[2024-10-24] MEDS: cefTRIAXone 1 GM/50 ML BAG IVPB (11:21)
--- NOTE | 2024-10-24 11:26 | CHAPLAIN ---
Erick was reading the newspaper in bed when I visited. He said he'd like to get out of here. His was visiting with him. They were both pleasant and easily engaged in conversation.
--- NOTE | 2024-10-24 16:38 | W.PM.PROGNOT ---
Date of Service Date of service: 10/24/24 Time of Service: 16:38 Assessment and Plan Assessment and plan (1) New onset a-fib: Status: Acute Assessment and plan: -like caused by CAP as noted above -Now reasonably rate controlled on long acitng diltiazem, continue. (2) CAP (community acquired pneumonia): Status: Acute Assessment and plan: -as seen on chest CT -started on doxy and CTX, will continue (3) Acute respiratory failure with hypoxia: Status: Acute Assessment and plan: -Likely secondary to community-acquired pneumonia and atrial fibrillation as noted above, element of COPD exacerbation. - He continues to require 3 liters. - Wean O2 as tolerated with goal saturation of 88 to 92% - PT consult to mobiliize, continue chestPT. (4) COPD exacerbation: Status: Acute Assessment and plan: A/w above, started prednisone 10/23, try scheduled nebs. (5) Coronary artery disease: Assessment and plan: - Continue home statin - Hold home lisinopril and amlodipine while uptitrating diltiazem, restart today as BP higher. - USP metprolol may be better option for rate control than diltiazem, but responded to dilt and no active CHF so no change for now. (6) RUQ pain: Status: Acute Assessment and plan: a/w RLL pneumonia, muscular pain with cough, LFTs reassuring. Subjective Subjective Patient reports: no new complaints, tolerating a regular diet and voiding w/o difficulty; denies nausea, vomiting or fever Interval history since last seen: Events: Transferred to floor. In/out of sinus/afib on tele He is feeling better. Would like to go home when he can, but he usually doesn't need oxygen. He admits he is still more tired than normal, a little weaker. Cough still hurts in RUQ. Exam Narrative Exam Narrative: Fatigued appearing older gentleman sitting up in bed in no acute distress, ANO x 4, [address], heart irregularly irregular with rate around 90 bpm, lungs clear to auscultation bilaterally except diminished right base. abdomen soft, tender in RUQ but no masses, nondistended, +BS. no C/C/edema Objective Last Vital Signs Temp 36.7 C 10/24/24 15:14 Pulse 101 H 10/24/24 15:14 Resp 15 10/24/24 15:14 BP 150/65 H 10/24/24 15:14 Pulse Ox 93 10/24/24 15:14 Laboratory Results - last 24 hr 10/24/24 05:48 Sodium 141 Potassium 3.3 L Chloride 107 Carbon Dioxide 28.4 Anion Gap 5.6 BUN 28 H Creatinine 1.1 Est GFR (CKD-EPI 2020) 70.01 Glucose 203 H Calcium 8.3 L Total Bilirubin 0.3 AST 33 ALT 36 Alkaline Phosphatase 97 Total Protein 5.9 L Albumin 2.0 L Time Spent with Patient Time Spent with Patient: 35-49 minutes Time was spent: preparing to see the patient(eg.review tests), obtaining and/or reviewing separately otained hiistory, ordering medications,tests, procedures, referring, communicating with other health long term care social worker, indepentently interpreting results, counseling the patient and care coordination
[2024-10-24] MEDS: traZODone 100 MG TAB PO (19:56)
[2024-10-24 20:27] LABS: Anion Gap 5.6 mmol/L (3-11); BUN 34 mg/dL (7-18); CO2 29.4 mmol/L (21.0-32.0); Calcium 8.6 mg/dL (8.5-10.1); Chloride 107 mmol/L (98-107); Estimated GFR 34.16 (mL/min/1.73m2); Glucose 193 mg/dL (74-106); Magnesium 1.8 mg/dL (1.8-2.4); Potassium 3.6 mmol/L (3.5-5.1); Sodium 142 mmol/L (136-145)
[2024-10-24] MEDS: MAGNESIUM SULFATE 2 GM/50 ML BAG IV_INF (20:53)
[2024-10-24] MEDS: Albuterol/Ipratropium 3 ML UPD VIAL UPD (22:06)
[2024-10-25] VITALS (11 sets, daily range): BP systolic 137–166; BP diastolic 53–86; PULSE 66–143; RESP 2–22; TEMP 36.2–36.8; O2SAT 88–95
[2024-10-25] MEDS: Albuterol/Ipratropium 3 ML UPD VIAL UPD ×2 (04:06→13:19)
[2024-10-25] MEDS: Metoprolol 5 MG/5 ML VIAL IVP (04:24)
[2024-10-25] MEDS: Normal Saline Flush 10 ML SYR IVP ×3 (04:28→12:25)
[2024-10-25 06:36] LABS: Anion Gap 10.8 mmol/L (3-11); BUN 33 mg/dL (7-18); CO2 28.2 mmol/L (21.0-32.0); CREATININE 1.4 mg/dL (0.70-1.30); Calcium 8.8 mg/dL (8.5-10.1); Chloride 106 mmol/L (98-107); Estimated GFR 52.41 (mL/min/1.73m2); Glucose 155 mg/dL (74-106); Potassium 3.7 mmol/L (3.5-5.1); Sodium 145 mmol/L (136-145)
[2024-10-25] MEDS: Tiotropium Bromide-Respimat 10 PUFF INH 2 PUFF IH (07:46)
[2024-10-25] MEDS: Enoxaparin 40 MG/0.4 ML SYR SC (08:50)
[2024-10-25] MEDS: Doxycycline Hyclate 100 MG CAP PO (08:50)
[2024-10-25] MEDS: Ezetimibe 10 MG TAB PO (08:50)
[2024-10-25] MEDS: predniSONE 20 MG TAB 40 MG PO (08:51)
[2024-10-25] MEDS: guaiFENesin 600 MG TABCR PO (08:51)
[2024-10-25] MEDS: Atorvastatin 20 MG TAB PO (08:51)
[2024-10-25] MEDS: dilTIAZem CD 120 MG CAPCR PO (08:51)
[2024-10-25] MEDS: Benzonatate 100 MG CAP PO ×2 (08:51→13:44)
[2024-10-25] MEDS: Aspirin 81 MG CHEW PO (08:51)
[2024-10-25] MEDS: Sertraline 100 MG TAB PO (08:53)
--- NOTE | 2024-10-25 10:14 | PT.INIE ---
PT Notes Visit Reasons: New A-fi with RVR, CAP Physical Therapy Initial Evaluation Date: 10/25/2024 Referring Doctor: Dr Irwin PT Orders: PT CONSULT: Safety Consult for D/C; Fall Safety Assessment Precautions: oxygen to keep sats >88% currently 3L/Min via NC Patient Profile/Admitting Diagnosis: Pt is a 74yo male who presented to the ED with cough. Pt diagnosed with community-acquired pneumonia resulting in acute hypoxic respiratory failure and a new diagnosis of atrial fibrillation with rapid ventricular rate. PMHX: COPD without exacerbation (Acute) Acute respiratory failure with hypoxia (Acute) Hypokalemia (Acute) BERNARDA (acute kidney injury) (Acute) Pneumonia (Acute) Atrial fibrillation with rapid ventricular response (Acute) CAP (community acquired pneumonia) (Acute) New onset a-fib (Acute) COPD exacerbation (Acute) Abdominal aortic aneurysm (Acute) Medical History Deafness Compensated by hearing aidsTransient ischemic attack Coronary artery disease HTN (hypertension) Carotid stenosis Surgical History Pilonidal cyst Social History/Home Situation:Pt resides with his in single family home with walk out basement. Pt has 5 SHAE with rail or 13 steps with rail from basement. Pt reports he is independent without device ambulation , ADL, shopping, yard work. prepares meals, They both drive. Equipment Owned/DME: none Subjective: Pt reports he feels great and is ready to go home Objective: [] General Observation: male seated in chair with telemetry and 3L/Min via NC , Continuous pulse oximetry currently sating at 91% Mental Status: Alert and Ox 4, cooperative, impulsive , able to follow directions, agreeable to participate in evaluation. Vitals: Monitored by Telemetry throughout including Oxygen Sat; rest 91% on 3 L/min, drop to 84%with activity on 3L/Min however poor perfusion noted hands ear. Pt does have visible JACOBSEN . will coordinate with RT for further assessment Pain: denies ROM: [] BUE:WFL BLE: WFL Strength: [] UE: 5/5 Right Lower Extremity: grossly 5/5 Left Lower Extremity: grossly 4/5 Sensation: intact Bed Mobility/Transfers: [] Supine to sit independent Sit to stand without FWW independent, with FWW supervision with cues to reach back with B hands Stand to sit without FWW independent, with FWW supervision with cues to reach back with B hands Bed to chair CGA and assist to manage oxygen tubing with and without FWW Gait: amb with FWW CGA and assist to manage oxygen tubing 120 feet with 1 stand rest reciprocal pattern cues provided for PLB, pacing and breath control. Stairs: 3 4 steps? and 2 6 steps with rails CGA with continuous cues for breath control pacing dependent for oxygen management, reciprocal pattern Balance: [] Static Sitting: normal Dynamic Sitting: normal Static Standing: good Dynamic Standing:Fair + Special Tests: [] Mobility Limitations Standardized Measure [] [facility] AM-PAC 6 clicks Basic Mobility Inpatient Short Form: [] Raw Score: 21 CMS Score: 28.97% Informed Consent/Education: Patient instructed in purpose of PT consult. Treatment: therapeutic activity: breath control with instruction in purse lipped breathing(PLB) pt requires continuous cues for technique. without cues pt reverts to mouth breathing with more chest expansion. CGA functional mobility with and without FWW: 20 feet x 3 without FWW with CGA , 120 feet with 1 stand rest with FWW CGA and cues for breath control, pacing PLB. Pt with poor safety awareness with oxygen tubing stepping over tubing around legs placing him at risk for falls. Assessment: Erick demonstrates poor insight into respiratory deficits despite visible Dyspnea and increased work of breathing during tasks and while talking during seated rest. Pt with poor safety with oxygen tubing increasing his risk for falls. Patient presents with clinical signs and symptoms consistent with current/admitting diagnoses that have resulted to mobility limitations, gait instability, generalized weakness, and impairment of motor control as demonstrated by the following impairment level findings: 1. Decreased strength BLE major muscle groups 2. Impaired standing balance 3. impaired breath control/ PLB, pacing 4. Impaired functional activity tolerance 5. need for supplemental oxygen 6. poor safety awareness with oxygen tubing Impairments are contributing to the following functional limitations: 1. Inability to safely ambulate without assistive device 2. Increase completion time for mobility ADL performance 3. Increased fall risk Patient is assessed as a moderate complexity based on the following: History: 74-year-old male with impairment level findings, functional limitations, and past medical history as indicated above Examination: Demonstrable impairment in strength, balance, and mobility level with underlying impairments and functional limitations as documented above Presentation: evolving Decision Making: moderate Goals: 1. independent transfers 2. independent ambulation >150 feet maintaining sats >88% 3. supervision 5 steps with rail to safely enter and exit home Plan of Care/Treatment Plan: 1-2x/day, 7 days/week x 1 week. Plan of care has been reviewed with the TRA[employer]IC LINE PAINTER providing the service under Physical Therapy direction. Initiate Physical Therapy intervention for strengthening, bed mobility, transfers, gait, stairs, balance training, use of assistive device. DISCHARGE RECOMMENDATIONS: Home with [facility] VS outpatient Pulmonary Rehab ( [facility]) TREATMENT CODE/TIME: 91502,74838/ [id number] Thank you for the opportunity to participate in the care of this patient. Fany Kendrick, PT [facility]
--- NOTE | 2024-10-25 12:02 | CMPROGNOTE_ITS ---
Date of service: 10/25/24 Time of Service: 12:39 Care Management Progress Note Progress Note Text Progress Note Text: Erick was sitting up in his chair and visiting with his brother Aaron and Magdalena, when CM arrived. Erick states that he is feeling much better and is eager to go home. Per PT, it is recommended that Erick see's Outpatient Pulmonary Rehab Program at [facility]; Information regarding the program was offered to the patient, he states he will think about rehab, at this time. Attempts were made to contact the [facility] to determine service availability, but no contact was made. CM will continue to follow. Discharge Potential Discharge Needs: PT Evaluation and PCP F/U Appt Anticipated Barriers to Discharge: Medical Status Patient/Family Education Needs: Review discharge instructions, discuss Ask Me Three Transportation: Private vehicle Plan: Anticipate Erick will return home once medically ready, likely with new outpatient Pulmonary Rehab Program. He will follow up with his PCP and continue per his plan of care. Erick will transport via private vehicle by [place]. Social Determinants of Health Screening Social Determinants of health last assessed in clinic: 10/25/24 Will the Patient Participate in the Screening?: Yes Do you worry about having a steady place to live?: no Problems where you live: no known problems In the past 12 months, have you had to go without electric, gas, oil or water in your home?: no 1. Within the past 12 months, we worried whether our food would run out before we got money to buy more.: Never true 2. Within the past 12 months, the food we bought just didn't last and we didn't have money to get more.: Never true Has lack of transportation kept you from medical appointments or from doing things needed for daily living?: no Has anyone in your life made you feel unsafe or unsupported?: no How hard is it for you to pay for the very basics like food, housing, medical care, and heating? Would you say it is:: Not hard at all Do you want help finding or keeping work or a job?: I do not need or want help If for any reason you need help with day-to-day activities such as bathing, preparing meals, shopping, managing finances, etc., do you get the help you need?: I don?t need any help How often do you feel lonely or isolated from those around you?: Never Do you speak a language other than Swedish at home?: No Does the patient want assistance with any of the above?: No
[2024-10-25] MEDS: cefTRIAXone 1 GM/50 ML BAG IVPB (12:26)
--- NOTE | 2024-10-25 14:02 | PHA.REVIEW2 ---
Pharmacy Admission Review Admission Clinical Review Admission Pharmacy Review: RUQ pain (Acute) COPD without exacerbation (Acute) Acute respiratory failure with hypoxia (Acute) CAP (community acquired pneumonia) (Acute) New onset a-fib (Acute) COPD exacerbation (Acute) No Known Allergies Allergy (Unverified 10/22/24 10:42) Resuscitation Status Full Code Height 5 ft 9 in Weight 68.946 kg Pharmacy Admission Review Renal Dosing Renal Dosing: BUN 33 mg/dL (7-18) H 10/25/24 05:56 Creatinine 1.4 mg/dL (0.70-1.30) H 10/25/24 05:56 Medications needing adjustments: Reviewed (CrCl 44.46 mL/min, BUN decreased from 34 and SCr decreased from 2) List of meds needing interventions: Current medications are okay Anticoagulation Anticoagulation: Hgb 13.0 g/dL (13.5-17.5) L 10/22/24 10:41 Hct 40.6 % (40.0-50.0) 10/22/24 10:41 Plt Count 217 10^3/uL (130-400) 10/22/24 10:41 Creatinine 1.4 mg/dL (0.70-1.30) H 10/25/24 05:56 DVT Prophylaxis: Reviewed Medications: Enoxaparin (40mg daily) Relevant Labs Relevant Labs: Sodium 145 mmol/L (136-145) 10/25/24 05:56 Potassium 3.7 mmol/L (3.5-5.1) 10/25/24 05:56 Chloride 106 mmol/L (98-107) 10/25/24 05:56 Magnesium 1.8 mg/dL (1.8-2.4) 10/24/24 20:10 Electrolytes, C-Reactive P, ESR: Reviewed Cardiac Review Cardiac Review: Troponin I 12 ng/L (<or=76) 10/22/24 12:15 Blood Pressure 145/80 1159 Blood Pressure 166/53 1152 Blood Pressure 137/61 0750 Blood Pressure 150/86 0424 Blood Pressure 157/75 0329 BP, HR, EF%: Reviewed (HR WNL, Ox 89) List meds needing interventions: Has orders for diltiazem CD 120mg daily and metoprolol 5mg IVP q4h PRN QTc Review QTc: Reviewed (477 from 10/22/24) IV to PO Switch IV Medications: Reviewed (ceftriaxone and metoprolol PRN) Home Meds Home Med List reviewed: Intervened Relevent Home Meds Not ordered & why?: amlodipine (on hold) and lisinopril (on hold) Asked provider about resuming home BP meds has BP has been pretty consistently elevated. Provider is looking into it, waiting to hear back. Current Meds Current Medication Order Review: Reviewed Pharmacy Antibiotic Review Relevant Labs: WBC 11.50 10^3/uL (4.4-10.8) H 10/22/24 10:41 Temperature 36.8 C Temperature 36.2 C Temperature 36.6 C Microbiology 10/22/24 11:05 Blood Culture - Preliminary Blood NO GROWTH 72 HOURS 10/22/24 12:15 Blood Culture - Preliminary Blood NO GROWTH 48 HOURS Pharmacy Antibiotic Activity: C/S review and Reviewed, no change Comments: Patient is on ceftriaxone and PO doxycycline, day 3, for community acquired pneumonia.
--- NOTE | 2024-10-25 15:19 | PT.INTREAT ---
PT Notes Visit Reasons: New A-fi with RVR, CAP Inpatient Physical Therapy Treatment Note [facility] Date: 10/25/2024 PRECAUTIONS:telemetry, monitor oxygen saturation SUBJECTIVE: Pt and report he is being discharged today. OBJECTIVE: Pt seated in chair with visiting. Pt noted with no SOB, and warm hands? PAIN: denies VITALS: ? Pre-Treatment: 93% RA during ambulation: >88% with cues for stand rest. ? Post-Treatment: 92% RA Therapeutic Activities (60289): Direct one-on-one instruction in dynamic activities to improve functional performance. ?? Provided skilled cues and instruction on performance and technique throughout. transfers various surfaces and heights with and without armrests: supervision. x 3 trials. pt noted with one episode of retropulsion when stood from 16 height. He was able to regain without assistance Functional mobility without AD simulating ambulation within home without oxygen: short distances under 30 feet with supervision - Facilitated safe and correct performance of level surface ambulation covering a distance of 200 feet without device supervision with 1 stand rest and cues for PLB Did not report of any increased pain. Denied headache, chest pain, and lightheadedness throughout activity. Minimal verbal cueing provided for directional changes, and posture. ASSESSMENT:? Pt no longer requiring supplemental oxygen at rest. and with mobility. Pt demonstrates improvement in ability to ambulate without AD and maintain sats >88% during mobility. Pt now with warm hands with improved perfusion via portable pulse oximeter. Pt demonstrates no LOB with ambulation without device. present and agree pt is walking at his baseline. Pt and instructed to utilize the [address] to conserve energy. Also instructed to perform ADL seated and to take rest periods. Pt with slightly improved PLB technique this session as compared to evaluation. PLAN: discharge home TREATMENT CODE/TIME:50758/ [id number] DISCHARGE RECOMMENDATION: Home with HHPT and [facility] vs Outpatient Pulmonary Rehab Program
--- NOTE | 2024-10-25 15:23 | CMDISCH_ITS ---
Date of service: 10/25/24 Time of Service: 15:23 LACE Index Scoring Tool Questions: Length of Stay (in days): 3 Was the patient admitted via the E.D.?: Yes Comorbidities: Chronic Pulmonary Disease E.D. Visits: 1 Answers: Total Score: 9 Risk of Readmission: Low Risk Care Management Discharge Plan Reason for Hospitalization: New A-fib with RVR, CAP Discharge Plan: Erick will return home today and has been referred to [facility] emergency department Pulmonary Rehab Program. He will follow up with his PCP and continue per his plan of care. Erick will transport via private vehicle by [employer]. Patient/Family Education Needs: Review discharge instructions, activity, limitations, and plan of care. Discuss Ask Me Three. SDOH Health Related Social Needs: No Data to Display
--- NOTE | 2024-11-02 15:49 | W.PM.DS.N ---
Date of service: 10/25/24 Time of Service: 11:30 DS: Diagnosis Discharge Diagnosis (1) New onset a-fib: Status: Acute (2) CAP (community acquired pneumonia): Status: Acute (3) Acute respiratory failure with hypoxia: Status: Resolved (4) COPD exacerbation: Status: Acute (5) Coronary artery disease: (6) RUQ pain: Status: Acute Discharge Plan Disposition Patient Disposition: Home Condition: Improving Discharge Details Reason For Visit: New A-fi with RVR, CAP Admit Date/Time: 10/22/24 12:52 Admit Provider: Ranjan Armijo Attending Provider: Ranjan Armijo Primary Care Provider: Merrill Bales Hospital Course Hospital Course: 72-year-old male with history of COPD, essential pretension, hyperlipidemia, AAA, h/o TIA, left internal carotid artery stenosis who presented to the emergency department with increasing dyspnea and cough along with intermittent fevers and chills. Chest XR and CT showed RLL pneumonia. He was hypoxic and required 3 liters of oxygen via NC. He was tachycardic and the EKG showed atrial fibrillation with a rate in the 130s and was admitted to the ICU on a diltiazem drip and IV cefriaxone and doxycycline for his pneumonia. He improved clinically and was transitioned to oral diltiazem CR at 120mg per day. His rate went in and out of atrial fibrillation. His [id number] score was 6, and anticoagulation with apixaban was recommended. [facility] so prescription for this was deferred for logistical reasons to his [facility] provider on follow up. Outpatient echocardigram was ordered on discharge. He was not initially treated with steroids as he was not wheezing, but prednisone was started 10/23 along with bronchodilators. He was off oxygen by the morning of discharge. He was sent home on 2 more days of amox/clav and doxycycline and a 6 day prednisone taper. He was evaluated by PT and pulmonary rehabilitation was recommended. Referral was placed for PFTs and pulmonary clinic at discharge. He had RUQ tenderness, but his LFTs were normal. CT chest did not show abnormalities in upper abdomen. This was felt to be caused by his RLL pneumonia as well as MSK strain from coughing. It improved by the time of discharge. He has a telehealth PCP appointment 10/26 Follow up: Prescribe anticoagulation for stroke risk associated with atrial fibrillation. Consider stopping aspirin. Titrate diltiazem or replace as needed. Follow up on echocardiogram and PFT results Home Meds and New Rx's Prescriptions: New doxycycline hyclate 100 mg Capsule 100 mg PO BID Qty: 4 0RF diltiazem HCl 120 mg Capsule,Extended Release 24hr 120 mg PO QAM Qty: 30 0RF Continued atorvastatin 20 mg Tablet 20 mg PO DAILY sertraline 100 mg Tablet 100 mg PO DAILY trazodone 100 mg Tablet 100 mg PO DAILY lisinopril 10 mg Tablet 20 mg PO DAILY aspirin [Nicola Chewable Aspirin] 81 mg Tablet,Chewable 1 tab PO DAILY albuterol sulfate 90 mcg/actuation HFA aerosol inhaler 2 inh inhalation Q4H PRNQty: 8.5 0RF tiotropium bromide [Spiriva with HandiHaler] 18 mcg capsule, w/inhalation device 1 cap inhalation DAILY Qty: 30 0RF Rx Instructions: puncture 1 cap using device; one dose = 2 inhalations ezetimibe 10 mg tablet 10 mg PO DAILY Discontinued amlodipine 5 mg tablet 5 mg PO DAILY Discharge Instructions Instructions: Atrial Fibrillation (DC) Additional Instructions: You have a pneumonia. You have 2 more days of antibiotics and a taper of prednisone over 6 days to treat this. Use your albuterol inhaler as needed. You have atrial fibrillation. We started you on diltiazem to control the heart rate. This will replace the amlodipine, which you should stop. Your primary care may increase the dose of this medication or change to another medication like metoprolol Atrial fibrillation puts you at risk for a stroke. I recommend apixaban or another similar blood thinner. This should be sent by your primary care to the [facility] pharmacy when you see her tomorrow. once you start this medication, you should probably stop the aspirin. Talk to your primary care provider about this. Stand Alone Forms: Nursing Discharge Form Referrals: Merrill Bales [Primary Care Provider] - (per Dr. Singh , pt already has an appointment with [facility] so no need to make one. ) Activity:: Activity as Tolerated Equipment/Supplies:: No Equipment Needed Diet:: As Tolerated Discharge Orders Discharge Orders: Discharge Order (Routine); Ordered 10/25/24 Ordered By: Manny Irwin Other Ambulatory Orders: PFT ([place]/DLCO/Volumes) (Routine) Facility: [facility] - Location: Respiratory Therapy Ordered By: Manny Irwin echocardiogram (Routine) Timeframe: 10 Day Facility: [facility] - Location: DIAGNOSTIC IMAGING Ordered By: Manny Irwin Discharge Data Discharge Date/Time-TO BE ENTERED AT DEPARTURE: 10/25/24 15:41 DS: Summary Time Spent with Patient providing and/or coordinating discharge services: Greater than 30 minutes Status at Discharge Functional status at discharge: uses cane/walker Overall status at discharge: patient is progressing back to baseline Mental Status: mental status grossly normal Speech and Movement: speech and movement normal Mood: congruent mood Affect: normal affect Quality:SDOH Health Related Social Needs: No Data to Display Exam Narrative Exam Narrative: Comfortable appearing older gentleman sitting up in bed in no acute distress, ANO x 4, heart irregularly irregular with rate around 90 bpm, lungs clear to auscultation bilaterally except diminished right base. abdomen soft, tender in RUQ but no masses, nondistended, +BS. no C/C/edema Psych Mental Status: mental status grossly normal Speech and Movement: speech and movement normal Mood: congruent mood Affect: normal affect DS: Data Vitals/I&O Vitals and I&O: Vital Signs Temperature 36.8 C 10/25/24 11:52 Temperature Source Temporal Artery Scan 10/25/24 11:52 Pulse 79 10/25/24 11:52 Pulse 101 H 10/23/24 12:01 Respiratory Rate 18 10/25/24 11:52 Respiratory Effort Labored, Accessory Muscle Use 10/22/24 13:52 Respiratory Depth Shallow 10/22/24 13:52 Respiratory Pattern Hyperpnea 10/22/24 13:52 Blood Pressure 145/80 H 10/25/24 11:59 Blood Pressure Mean 101 10/25/24 11:59 Blood Pressure Position Supine 10/22/24 13:52 Pulse Oximetry 89 L 10/25/24 13:19 Oxygen Delivery Method Room Air 10/25/24 13:19 Oxygen Flow Rate 0 10/25/24 13:19 Fraction of Inspired Oxygen (FIO2) 3 10/22/24 10:41 Pain Level 0 10/25/24 03:29 Comment RN notified 10/25/24 11:59 PFSH All Active Problems (Updated 10/26/24 @ 00:04 by RYAN ROLON) RUQ pain (Acute) COPD without exacerbation (Acute) Hypokalemia (Acute) BERNARDA (acute kidney injury) (Acute) Pneumonia (Acute) Atrial fibrillation with rapid ventricular response (Acute) CAP (community acquired pneumonia) (Acute) New onset a-fib (Acute) COPD exacerbation (Acute) Abdominal aortic aneurysm (Acute) Medical History Deafness Compensated by hearing aids Transient ischemic attack Coronary artery disease HTN (hypertension) Carotid stenosis Surgical History Pilonidal cyst Social History Smoking/Tobacco Use Status: Former Tobacco Use Quit Date: 01/29/18 Tobacco: How many years used: 53 Smoking risk assessment performed?: Yes Alcohol Intake: former Drug use: Never Substance use type: does not use Housing: house Do you feel safe at home: Yes Do you feel safe in your relationship?: Yes Time Spent with Patient Time Spent with Patient: <45 minutes Time was spent: preparing to see the patient(eg.review tests), obtaining and/or reviewing separately otained hiistory, ordering medications,tests, procedures, referring, communicating with other health personal care home administrator, indepentently interpreting results, counseling the patient and care coordination
== END 2024-10-25 15:41 | disposition home or self-care (01) | DRG 193 ==
LOC: ER 12:55 → ICU 13:39 → MS 10-23 12:25
PROVIDERS: Family Medicine; Admitting Provider Family Medicine; Emergency Provider Student in an Organized Health Care Education/Training Program; PCP Internal Medicine; Responsible Provider Family Medicine; Visit Provider Family Medicine
DX: J18.9 Pneumonia, unspecified organism (principal); J96.01 Acute respiratory failure with hypoxia; J44.0 Chronic obstructive pulmonary disease with (acute) lower respiratory infection; N17.9 Acute kidney failure, unspecified; I48.91 Unspecified atrial fibrillation; I25.10 Atherosclerotic heart disease of native coronary artery without angina pectoris; R10.11 Right upper quadrant pain; E87.6 Hypokalemia; I71.40 Abdominal aortic aneurysm, without rupture, unspecified; I10 Essential (primary) hypertension; Z86.73 Personal history of transient ischemic attack (TIA), and cerebral infarction without residual deficits; H91.93 Unspecified hearing loss, bilateral; Z97.4 Presence of external hearing-aid; Z87.891 Personal history of nicotine dependence
CPT/HCPCS: 00123; 36415; 71275; 80048; 80053; 82805; 87040; 87637; 93005; 94640; 94761; 96361; 96365; 96367; 96368; 96376; 97162; 97530; 99285; J1650; 71046; 81003; 81015; 83605; 83735; 84443; 84484; 85025; 85379; 93010; 94664; 94668; 94760; 99223; 99232; 99233; J0696; J3475; J3490; J7512; J7620